=== PATIENT | male | born 1960 | race Caucasian/White ===

== ENCOUNTER 2018-02-13 16:35 | Inpatient (IN) | payer BC ==
[2018-02-13 17:13] LABS: #Basophils 0.1 thou/uL (0.0-0.2); #Eosinphils 0.4 thou/uL (0.0-0.7); #Lymphocytes 1.7 thou/uL (1.20-3.40); #Monocytes 0.7 thou/uL (0.11-0.59); #Neutrophils 5.4 thou/uL (1.40-6.50); %Basophils 1.1 % (0.0-1.0); %Lymphocytes 20.7 % (21.0-51.0); %Monocytes 8.1 % (0.0-10.0); %Neutrophils 65.2 % (42.0-75.0); Hemoglobin 14.8 g/dL (14.0-18.0); Mean Corpuscular HGB CONC 33.3 g/dL (32.0-36.0); Platelet Count 239 thou/uL (130-400); RBC Distribution Width 11.3 % (11.5-14.5); Red Blood Cell (RBC) Count 5.11 mill/uL (4.70-6.10); White Blood Cell (WBC) Count 8.3 thou/uL (4.8-10.8)
[2018-02-13 17:22] LABS: PTT 35.2 SEC (22.9-36.1); Prothrombin Time 13.3 SEC (12.0-14.7)
[2018-02-13 17:31] LABS: ALT (SGPT) 31 U/L (8-55); AST (SGOT) 25 U/L (5-34); Albumin 4.4 g/dL (3.5-5.0); Alkaline Phosphatase 52 U/L (40-150); Anion Gap 14 mmol/L (10-20); BUN (Urea Nitrogen) 16 mg/dL (8.4-25.7); Bilirubin, Total 0.5 mg/dL (0.2-1.2); Calc. Creatinine Clearance 0 mL/min (70-130); Calcium 9.9 mg/dL (7.8-10.44); Carbon Dioxide 26 mmol/L (22-29); Chloride 104 mmol/L (98-107); Estimated GFR-MDRD Greater than 90; Globulin 3.6 g/dL (2.4-3.5); Glucose 92 mg/dL (70-105); Potassium 3.9 mmol/L (3.5-5.1); Sodium 140 mmol/L (136-145)
[2018-02-13 17:32] LABS: CKMB 1.1 ng/mL (0-6.6); Troponin I 0.019 ng/mL (< 0.028)
--- NOTE | 2018-02-13 17:49 | RAD ---
SINGLE VIEW OF THE CHEST: 02/13/18 COMPARISON: None. HISTORY: Chest pain and abnormal EKG. FINDINGS: Single view of the chest shows an enlarged cardiomediastinal silhouette. There is no evidence of cons olidation, mass or pleural effusion. IMPRESSION: No evidence of acute cardiopulmonary disease. POS: [facility]
[2018-02-13] MEDS ORDERED: Enoxaparin Sodium 30 MG/0.3 ML SYRINGE ONE (17:53)
[2018-02-13] MEDS ORDERED: Enoxaparin Sodium 100 MG/ML SYRINGE ONE (17:53)
[2018-02-13 19:00] VITALS: BMI 39.4
[2018-02-13] MEDS ORDERED: Calcium Carbonate 500 MG ChewTAB PO PRN (19:10)
[2018-02-13] MEDS ORDERED: Acetaminophen 325 MG TAB PO PRN (19:10)
[2018-02-13] MEDS ORDERED: Ondansetron ODT 4 MG TAB PO PRN (19:10)
[2018-02-13] MEDS ORDERED: Nitroglycerin 0.4 MG TAB (25 Tab Bottle) PO PRN (19:10)
[2018-02-13] MEDS ORDERED: Senokot 8.6 MG TAB PO PRN (19:10)
[2018-02-13] MEDS ORDERED: Ondansetron HCl/PF 4 MG/2 ML Vial IVP PRN (19:10)
[2018-02-13 20:59] LABS: Troponin I 0.029 ng/mL (< 0.028)
[2018-02-13] MEDS ORDERED: Carvedilol 6.25 MG TAB PO SCH (21:00)
[2018-02-13] MEDS ORDERED: Lisinopril 20 MG TAB PO SCH (21:30)
[2018-02-13] MEDS ORDERED: hydrALAZINE 20 MG/ML VIAL SLOW IVP PRN (21:30)
[2018-02-13] MEDS: Docusate 100 MG CAP PO SCH (21:41)
[2018-02-13] MEDS: Famotidine 20 MG TAB PO SCH (21:41)
--- NOTE | 2018-02-13 22:12 | HP ---
DATE OF ADMISSION: 02/13/2018 PRIMARY CARE PHYSICIAN: Dr. Newell. CHIEF COMPLAINT: Abnormal EKG/new-onset atrial fibrillation. HISTORY OF PRESENT ILLNESS: Patient is a 58-year-old male with hypertension, hyperlipidemia, obstruc tive sleep apnea on CPAP, and obesity presented to the emergency room with above complaints. Patient was seen by his primary care physician for a routine visit and was found to have irregular he artbeat. His EKG was consistent with atrial fibrillation. For this reason, he was sent to the [facility] ency room for evaluation. At this time, patient denies any chest pain, shortness of breath, palpitat ions, lightheadedness, dizziness, or syncope. He denies any exertional shortness of breath. He cons umes up to 25-30 ounces of caffeine on a daily basis. He denies recent immobilization or travel. PAST MEDICAL HISTORY: 1. Hypertension. 2. Obesity with a BMI 39.5. 3. Obstructive sleep apnea on CPAP. 4. Degenerative joint disease. 5. Hyperlipidemia. PAST SURGICAL HISTORY: 1. Left eye surgery. 2. Orchiopexy. ALLERGIES: No known drug allergies. CURRENT HOME MEDICATIONS: 1. Lisinopril 20/25 daily. 2. Lisinopril 20 mg at bedtime (new medication per PCP to be started tonight). 3. Carvedilol 12.5 mg daily. 4. Aspirin 81 mg daily. 5. Amlodipine 10 mg daily. SOCIAL HISTORY: Patient currently lives at home. Denies any smoking, alcohol, or drug use. 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 He is . He drinks alcohol socially, no drug use. FAMILY HISTORY: Father with heart disease. Mother with uterine cancer and hypertension. One brothe r with cirrhosis of the liver. One sister with cirrhosis of the liver. REVIEW OF SYSTEMS: The following complete review of systems was negative, unless otherwise mentioned in the HPI or below: Constitutional: Weight loss or gain, ability to conduct usual activities. Sk in: Rash, itching. Eyes: Double vision, pain. ENT/Mouth: Nose bleeding, neck stiffness, pain, te nderness. Cardiovascular: Palpitations, dyspnea on exertion, orthopnea. Respiratory: Shortness of breath, wheezing, cough, hemoptysis, fever, or night sweats. Gastrointestinal: Poor appetite, abdo merrill pain, heartburn, nausea, vomiting, constipation, or diarrhea. Genitourinary: Urgency, frequen cy, dysuria, nocturia. Musculoskeletal: Pain, swelling. Neurologic/Psychiatric: Anxiety, depressi on. Allergy/Immunologic: Skin rash, bleeding tendency. PHYSICAL EXAMINATION: VITAL SIGNS: In the emergency room showed temperature 98.3, respiration 18, pulse rate of 60, blood pressure 154/81 with O2 saturation 98% on room air. GENERAL: A 58-year-old male in no apparent distress. Denies any complaints. HEENT: Head atraumatic, normocephalic. Sclerae anicteric. Moist mucous membrane. No oral lesion. NECK: Supple, no JVD appreciated. No carotid bruit. LUNGS: Clear to auscultation bilaterally. No wheezing, rales, or rhonchi. HEART: S1, S2 present. Irregularly irregular. No murmur, rubs, or gallops appreciated. Bradycardi c. ABDOMEN: Soft, nontender, bowel sounds present. No rebound or guarding. EXTREMITIES: Trace edema in bilateral lower extremities. SKIN: Warm and dry. LYMPH NODES: No palpable lymph nodes in the neck. PERIPHERAL VASCULAR: Radial pulses palpable bilaterally. MUSCULOSKELETAL: No joint swelling or tenderness. SKIN: Warm and dry. LABORATORY FINDINGS: Initial troponin 0.019, repeat troponin 0.029. BUN 16, creatinine 0.76. CBC s howed WBC 8.3 with hemoglobin 14.8. Recent hemoglobin A1c was 5.4. Recent fasting lipid profile deion sun LDL 112, HDL 35 with cholesterol 164, triglyceride 87. EKG by my review showed atrial fibrillation with slow ventricular response. Chest x-ray by my review was negative for infiltrate or edema. IMPRESSION: 1. Abnormal EKG/new-onset atrial fibrillation with slow ventricular response. 2. Elevated troponins, probably secondary to demand ischemia, rule out acute coronary syndrome. 3. Obesity with a BMI 39.5. 4. Obstructive sleep apnea on CPAP at home. Patient cannot recall his settings. PLAN: Patient will be monitored on the telemetry unit as observation. Cardiology will be consulted. One dose of Lovenox 1 mg/kg was given in the emergency room. We will continue his home medication except for carvedilol. We will reduce the dose of carvedilol due to bradycardia. Echocardiogram maria e l be obtained. We will recheck troponin and electrolytes in a.m. We will keep him n.p.o. past [facility]. We will arrange for AutoPap if possible. Plan of care was discussed with patient in detail, he stated understanding. DISPOSITION: Probably in 24 hours.
[2018-02-14 06:27] LABS: #Basophils 0.1 thou/uL (0.0-0.2); #Eosinphils 0.4 thou/uL (0.0-0.7); #Lymphocytes 1.7 thou/uL (1.20-3.40); #Monocytes 0.8 thou/uL (0.11-0.59); #Neutrophils 4.7 thou/uL (1.40-6.50); %Basophils 0.9 % (0.0-1.0); %Lymphocytes 22.4 % (21.0-51.0); %Monocytes 10.1 % (0.0-10.0); %Neutrophils 61.6 % (42.0-75.0); Hemoglobin 14.2 g/dL (14.0-18.0); Mean Corpuscular HGB CONC 34.1 g/dL (32.0-36.0); Mean Corpuscular Hemoglobin 30.7 pg (27.0-31.0); Mean Platelet Volume 6.8 fL (7.4-10.4); Platelet Count 235 thou/uL (130-400); RBC Distribution Width 11.6 % (11.5-14.5); Red Blood Cell (RBC) Count 4.62 mill/uL (4.70-6.10); White Blood Cell (WBC) Count 7.7 thou/uL (4.8-10.8)
[2018-02-14 06:54] LABS: Albumin 4.2 g/dL (3.5-5.0); Anion Gap 12 mmol/L (10-20); BUN (Urea Nitrogen) 16 mg/dL (8.4-25.7); BUN/Creatinine Ratio 21.05; Calc. Creatinine Clearance 193 mL/min (70-130); Calcium 9.7 mg/dL (7.8-10.44); Carbon Dioxide 26 mmol/L (22-29); Chloride 106 mmol/L (98-107); Estimated GFR-MDRD Greater than 90; Glucose 89 mg/dL (70-105); Magnesium 2.2 mg/dL (1.6-2.6); Phosphorus 4.1 mg/dL (2.3-4.7); Potassium 3.7 mmol/L (3.5-5.1); Sodium 140 mmol/L (136-145)
[2018-02-14 07:00] LABS: Troponin I 0.026 ng/mL (< 0.028)
[2018-02-14] MEDS ORDERED: Aspirin 325 MG TAB PO SCH (09:00)
[2018-02-14] MEDS: Multivit, Therapeutic 1 TAB PO SCH (09:40)
[2018-02-14] MEDS: Aspirin 81 mg Enteric Coated Tablet PO SCH (09:42)
[2018-02-14] MEDS: Famotidine 20 MG TAB PO SCH ×2 (09:43→20:39)
[2018-02-14] MEDS: Docusate 100 MG CAP PO SCH ×2 (09:44→20:38)
[2018-02-14] MEDS: Amlodipine 10 MG TAB PO SCH (09:53)
[2018-02-14] MEDS: Carvedilol 3.125 MG TAB PO SCH ×2 (09:54→22:07)
[2018-02-14] MEDS: Lisinopril/Hydrochlorothiazide 20/25 mg Tablet PO SCH (09:54)
[2018-02-14] MEDS ORDERED: Atropine Sulfate 1 mg/1 ml Vial IVP PRN (17:47)
--- NOTE | 2018-02-14 17:54 | PDOC.PN ---
- Subjective Encounter Start Date: 02/14/18 Encounter Start Time: 18:00 Patient seen and examined. No new complaints. No overnight events. HR in 20s this morning. - Objective Resuscitation Status: Resuscitation Status FULL:Full Resuscitation MAR Reviewed: Yes Vital Signs & Weight: Vital Signs (12 hours) Temp Pulse Resp BP BP Pulse Ox 02/14/18 15:31 97.8 F 61 16 139/88 96 02/14/18 11:58 97.4 F L 51 L 16 136/80 97 02/14/18 09:54 37 L 140/90 02/14/18 09:53 37 L 140/90 02/14/18 07:45 97.4 F L 38 L 18 02/14/18 07:39 97.4 F L 38 L 18 137/62 97 Weight Weight 291 lb 4.8 oz I&O: 02/13/18 02/14/18 02/15/18 06:59 06:59 06:59 Intake Total 750 Output Total 950 Balance -200 Result Diagrams: 02/18/18 04:57 02/18/18 04:57 EKG Reviewed by me: Yes (Afib with Slow Vent rate) Phys Exam - Physical Examination Constitutional: NAD Respiratory: no wheezing, no rales, no rhonchi, clear to auscultation bilateral Cardiovascular: no rub, irregular bradycardia Gastrointestinal: soft, non-tender, no distention, positive bowel sounds Musculoskeletal: no edema Neurological: non-focal, normal sensation, moves all 4 limbs Psychiatric: normal affect, A&O x 3 Dx/Plan - Plan DVT proph w/SCDs IMPRESSION: 1. Abnormal EKG/new-onset atrial fibrillation with slow ventricular response. HR 27 this morning. 2. Elevated troponins, probably secondary to demand ischemia, rule out acute coronary syndrome. 3. Obesity with a BMI 39.5. 4. Obstructive sleep apnea on CPAP at home. PLAN: * Cardio input appreciated * Await Echo * Patient unsafe for discharge due to severe bradycardia * [facility] on hold * Cont Lisinopril/HCTZ/Amlodipine * Cont CPAP Laboratory Tests 02/13/18 02/13/18 02/14/18 17:08 20:29 05:53 Magnesium 2.2 Troponin I 0.019 0.029 H TSH 3rd Generation 02/14/18 02/14/18 05:53 05:53 Magnesium Troponin I 0.026 TSH 3rd Generation 1.8838 Review of Systems - Review of Systems Respiratory: negative: Cough, Dry, Shortness of Breath, Hemoptysis, SOB with Excertion, Pleuritic Pain, Sputum, Wheezing Cardiovascular: negative: chest pain, palpitations, orthopnea, paroxysmal nocturnal dyspnea, edema, light headedness, other - Medications/Allergies Allergies/Adverse Reactions: Allergies Allergy/AdvReac Type Severity Reaction Status Date / Time No Known Allergies Allergy Verified 02/13/18 19:51 Medications: Current Medications Acetaminophen (Tylenol) 650 mg PO Q4H PRN PRN Reason: Headache/Fever or Pain Amlodipine Besylate (Norvasc) 10 mg PO DAILY [facility] Last Admin: 02/14/18 09:53 Dose: 10 mg Aspirin (Ecotrin) 81 mg PO DAILY [facility] Last Admin: 02/14/18 09:42 Dose: 81 mg Atropine Sulfate (Atropine) 0.5 mg IVP ASDIR PRN PRN Reason: Sustained Bradycardia HR < 30 Calcium Carbonate (Tums) 1,000 mg PO Q4H PRN PRN Reason: Heartburn or Indigestion Docusate Sodium (Colace) 100 mg PO BID [facility] Last Admin: 02/14/18 09:44 Dose: Not Given Famotidine (Pepcid) 20 mg PO BID [facility] Last Admin: 02/14/18 09:43 Dose: 20 mg Lisinopril/HCTZ (Prinizide 20-25) 1 tab PO DAILY [facility] Last Admin: 02/14/18 09:54 Dose: 1 tab Hydralazine HCl (Apresoline) 10 mg SLOW IVP Q4H PRN PRN Reason: SBP Greater Than 180 Lisinopril (Zestril) 20 mg PO [facility] Multivitamins (Theragran) 1 tab PO DAILY [facility] Last Admin: 02/14/18 09:40 Dose: 1 tab Nitroglycerin (Nitrostat) 0.4 mg PO Q5MIN PRN PRN Reason: Chest Pain Ondansetron HCl (Zofran Odt) 4 mg PO Q6H PRN PRN Reason: Nausea/Vomiting Ondansetron HCl (Zofran) 4 mg IVP Q6H PRN PRN Reason: Nausea/Vomiting Senna (Senokot) 2 tab PO HSPRN PRN PRN Reason: Constipation Sodium Chloride (Flush - Normal Saline) 10 ml IVF PRN PRN PRN Reason: Saline Flush
--- NOTE | 2018-02-14 18:09 | CON ---
DATE OF ADMISSION: 02/13/2018 DATE OF CONSULTATION: 02/14/2018 INDICATION FOR CONSULTATION: A 58-year-old patient with atrial fibrillation and bradycardia. HISTORY OF PRESENT ILLNESS: This is a very pleasant 58-year-old gentleman, who works for [employer], who almanzar s had no previous cardiac history that he is aware of. He does have history of hypertension, sleep a pnea. He denies any history of hyperlipidemia. He has not been on cholesterol medicines that I can see, but he denies having hyperlipidemia, but does have sleep apnea, has been on the CPAP mask for ab out 3 years. He had no history of any arrhythmias in the past. He was seen by the primary care phys sotero and was noted to have an irregular rhythm. An EKG was obtained. The patient was sent to the [facility] for admission. He remains in atrial fibrillation since being here. He has had severe bradyc ardia with heart rates in the 30s, but he was actually taking also carvedilol 12.5 mg a day, which he has been doing so for the last 3 years and this is being held. His heart rate is actually increasin g some with bradycardia. He has been actually heart rates in the 30s with the atrial fibrillation, b ut also I believe he was sleeping at the time, bust he does wear a CPAP mask. He denied any chest pa in or shortness of breath or any other associated symptoms with the bradycardia. He does have obesit y, but denied any other associated symptoms. He has been trying to lose weight and has lost about 32 pounds over the last 6 months after changing his dietary habits. As far as his atrial fibrillation is concerned, he does drink about 4-5 cups of coffee a day. He also says he drinks 1-2 beers a day a nd on the weekends he drinks 6-8 beers a day from Sunday, Sunday or Sunday. He denied any chest pa in and he had no significant family history of arrhythmias or coronary artery disease. PAST MEDICAL HISTORY: Significant for hypertension, obesity, sleep apnea, degenerative joint disease . He has had left eye surgery after trauma. He continues to have blurred vision in the left eye. Santos freeman has had an orchiopexy. ALLERGIES: None. MEDICATIONS PRIOR TO ADMISSION: Included lisinopril 20/12.5 q. day and 20 mg q.p.m., carvedilol 12.5 mg q. day, aspirin 81 mg a day and amlodipine 10 mg a day. SOCIAL HISTORY: He is . He works for [employer] in maintenance. He denies any tobacco abuse, but d oes admit to alcohol use as noted above. He had no illicit drug use. FAMILY HISTORY: Father had some type of heart disease. One brother with cirrhosis. Mother had uter ine cancer and hypertension and the sister also had cirrhosis of the liver. ALLERGIES: None. REVIEW OF SYSTEMS: Twelve-point review of systems is unremarkable except what was noted in the histo ry of present illness. He does complain of foot pain; however, which appears to be somewhat sounds a s if he has some arthritis. In both feet, he has pain sometimes when he wakes, sometimes with walkin g. Otherwise, he denied any HEENT complaints, but blurred vision in the left eye. He had no pulmona ry complaints such as emphysema, bronchitis. No GI complaints such as nausea, vomiting or diarrhea. No complaints such as dysuria, polyuria, or hematuria. Musculoskeletal: As noted above. No sig nificant other problems. He does have occasional mild edema, he says, but this was usually goes away overnight and no neurological complaints such as seizures or syncope. PHYSICAL EXAMINATION: GENERAL: Reveals a well-developed, well-nourished, overweight gentleman. VITAL SIGNS: Blood pressure is 140/90, heart rate at this time is anywhere appears to be in the 50s to 60s with atrial fibrillation. He is afebrile, respiratory rate is 18. HEENT: Shows the head to be normocephalic, atraumatic. Carotid pulses are present. There are no br uits. There is no JVD. The thyroid is not enlarged. Oral mucosa was pink and moist. CHEST: Clear to auscultation. There were no rales, rhonchi or wheezing. CARDIOVASCULAR: Exam reveals a bradycardia with a regular rhythm. There were no significant murmurs , heaves, thrills, bruits or rubs. ABDOMEN: Shows obesity with positive bowel sounds. No organomegaly or masses are noted. No tendern ess is noted. EXTREMITIES: Show no clubbing, cyanosis or edema. Pedal pulses are present. NEUROLOGICAL: He appears to be fully intact. He has normal strength and tone. SKIN: Warm and dry. IMAGING: EKG shows an atrial fibrillation at times and severe bradycardia. Heart rates actually in the 20s, but the patient apparently was sleeping at the time. There are no ischemic changes on the E KG. LABORATORY DATA: Shows a hemoglobin of 14.2. Creatinine 0.76 with a BUN of 16, potassium is 3.7 and glucose is 89. His cardiac enzymes are negative for myocardial infarction. MB is 1.1 with a tropon in I peaked up to 0.029 and back down to 0.026, not indicative of MN. The patient denies any chest p ain. He has no EKG changes indicative of ischemia. His LDL level was 112. IMPRESSION AND PLAN: 1. A newly diagnosed atrial fibrillation with slow ventricular response. We will hold his beta bloc kers at this time. We will see whether or not he recovers with his heart rate. If not, he will need to undergo pacemaker insertion. He will need an echocardiogram for evaluation of left atrial size a nd also to evaluate the left ventricular systolic function. It may be possible that he can be conver sanna back to sinus rhythm, but will need to have anticoagulation for at least 4-6 weeks. We do not kn ow when the atrial fibrillation started. If necessary, we can always consult the compensation specialist and he can undergo perhaps a transesophageal echocardiogram and then may need to have an ablation of the atrial fibrillation in the future. If unable to do so, he could become a candidate for the [employer] hman device to decrease the risk of embolic phenomenon in this relatively young person, who would be on anticoagulation. If we are unable to convert him with somewhat agree with the present management, keeping him on the anticoagulation. 2. Hypertension, which is under good control at this time. 3. Sleep apnea. He will continue with the CPAP mask and this will be dealt with by the primary serv ice. 4. Obesity. He will continue to try to lose weight as he is doing. 5. Alcohol use. I have suggested that he try to cut back on the alcohol use, 1-2 beers a day and th en 6-8 beers a day on the weekend is too much alcohol for this gentleman with his atrial fibrillation may be some of the etiology of his atrial fibrillation. At some point in time, he will probably nee d to undergo stress testing to rule out evidence of ischemia as a possible etiology of the atrial fib rillation. We will need to have his thyroid function also evaluated. We will be more than happy to continue to follow the patient with you, but further recommendations wi ll depend on the evaluation after we have seen the echocardiogram.
[2018-02-14] MEDS: Lisinopril 20 MG TAB PO SCH (20:39)
[2018-02-15] MEDS ORDERED: Enoxaparin Sodium 120 MG/0.8 ML SYRINGE SC SCH ×2 (07:45→09:00)
[2018-02-15] MEDS: Lisinopril/Hydrochlorothiazide 20/25 mg Tablet PO SCH (09:46)
[2018-02-15] MEDS: Famotidine 20 MG TAB PO SCH ×2 (09:47→20:56)
[2018-02-15] MEDS: Amlodipine 10 MG TAB PO SCH (09:47)
[2018-02-15] MEDS: Aspirin 81 mg Enteric Coated Tablet PO SCH (09:47)
[2018-02-15] MEDS: Multivit, Therapeutic 1 TAB PO SCH (09:47)
[2018-02-15] MEDS: Docusate 100 MG CAP PO SCH ×2 (09:47→20:57)
[2018-02-15 10:12] LABS: Hemoglobin 15.1 g/dL (14.0-18.0); Platelet Count 222 thou/uL (130-400)
[2018-02-15 10:24] LABS: Calc. Creatinine Clearance 190 mL/min (70-130); Estimated GFR-MDRD Greater than 90
[2018-02-15] MEDS ORDERED: Communication Order-Pharmacy FS SCH (16:45)
[2018-02-15] MEDS: Lisinopril 20 MG TAB PO SCH (20:56)
[2018-02-15] MEDS: Enoxaparin Sodium 120 MG/0.8 ML SYRINGE SC SCH (20:57)
--- NOTE | 2018-02-15 23:16 | PDOC.PN ---
- Subjective Encounter Start Date: 02/15/18 Encounter Start Time: 17:00 Patient seen and examined. No new complaints. No overnight events - Objective MAR Reviewed: Yes Vital Signs & Weight: Vital Signs (12 hours) Temp Pulse Resp BP BP Pulse Ox 02/15/18 20:56 132/77 02/15/18 15:45 97.7 F 64 20 170/87 H 97 02/15/18 11:52 49 L 20 158/81 H 98 Weight Weight 283 lb 4.8 oz I&O: 02/14/18 02/15/18 02/16/18 06:59 06:59 06:59 Intake Total 560 1056 Output Total 1250 2024 Balance -041 -184 Result Diagrams: 02/15/18 10:00 02/15/18 10:00 EKG Reviewed by me: Yes (Tele Afib) Phys Exam - Physical Examination Constitutional: NAD Respiratory: no wheezing, no rhonchi Cardiovascular: RRR, no rub Gastrointestinal: soft, non-tender, positive bowel sounds Neurological: non-focal, moves all 4 limbs Psychiatric: A&O x 3 Dx/Plan - Plan DVT proph w/lovenox IMPRESSION: 1. Abnormal EKG/new-onset atrial fibrillation with slow ventricular response. 2. New onset systolic heart failure EF 30-35% 3. Elevated troponins, probably secondary to demand ischemia, rule out acute coronary syndrome. 4. Obesity with a BMI 39.5. 5. Obstructive sleep apnea on CPAP at home. PLAN: * Cardio following * [facility] on hold * Cont Lisinopril/HCTZ/Amlodipine * Cont CPAP HS * Cardiac Cath planned * [facility] [place] Review of Systems - Review of Systems Respiratory: SOB with Excertion. negative: Cough, Dry, Shortness of Breath, Hemoptysis, Pleuritic Pain, Sputum, Wheezing Cardiovascular: negative: chest pain, palpitations, orthopnea, paroxysmal nocturnal dyspnea, edema, light headedness Gastrointestinal: negative: Nausea, Vomiting, Abdominal Pain, Diarrhea, Constipation, Melena, Hematochezia - Medications/Allergies Allergies/Adverse Reactions: Allergies Allergy/AdvReac Type Severity Reaction Status Date / Time No Known Allergies Allergy Verified 02/13/18 19:51 Medications: Current Medications Acetaminophen (Tylenol) 650 mg PO Q4H PRN PRN Reason: Headache/Fever or Pain Amlodipine Besylate (Norvasc) 10 mg PO DAILY [facility] Last Admin: 02/15/18 09:47 Dose: Not Given Aspirin (Ecotrin) 81 mg PO DAILY [facility] Last Admin: 02/15/18 09:47 Dose: 81 mg Atropine Sulfate (Atropine) 0.5 mg IVP ASDIR PRN PRN Reason: Sustained Bradycardia HR < 30 Calcium Carbonate (Tums) 1,000 mg PO Q4H PRN PRN Reason: Heartburn or Indigestion Docusate Sodium (Colace) 100 mg PO BID [facility] Last Admin: 02/15/18 20:57 Dose: 100 mg Enoxaparin Sodium (Lovenox) 120 mg SC 0900,2100 [facility] Stop: 02/17/18 23:59 Last Admin: 02/15/18 20:57 Dose: 120 mg Famotidine (Pepcid) 20 mg PO BID [facility] Last Admin: 02/15/18 20:56 Dose: 20 mg Lisinopril/HCTZ (Prinizide 20-25) 1 tab PO DAILY [facility] Last Admin: 02/15/18 09:46 Dose: 1 tab Hydralazine HCl (Apresoline) 10 mg SLOW IVP Q4H PRN PRN Reason: SBP Greater Than 180 Lisinopril (Zestril) 20 mg PO HS [facility] Last Admin: 02/15/18 20:56 Dose: 20 mg Miscellaneous Information (Communication Order-Pharmacy) 0 each FS [facility] Stop: 02/17/18 23:59 Multivitamins (Theragran) 1 tab PO DAILY [facility] Last Admin: 02/15/18 09:47 Dose: 1 tab Nitroglycerin (Nitrostat) 0.4 mg PO Q5MIN PRN PRN Reason: Chest Pain Ondansetron HCl (Zofran Odt) 4 mg PO Q6H PRN PRN Reason: Nausea/Vomiting Ondansetron HCl (Zofran) 4 mg IVP Q6H PRN PRN Reason: Nausea/Vomiting Senna (Senokot) 2 tab PO HSPRN PRN PRN Reason: Constipation Sodium Chloride (Flush - Normal Saline) 10 ml IVF PRN PRN PRN Reason: Saline Flush Last Admin: 02/15/18 09:46 Dose: 10 ml
[2018-02-16] MEDS: Enoxaparin Sodium 120 MG/0.8 ML SYRINGE SC SCH ×2 (09:21→21:30)
[2018-02-16] MEDS: Aspirin 81 mg Enteric Coated Tablet PO SCH (09:22)
[2018-02-16] MEDS: Amlodipine 10 MG TAB PO SCH (09:22)
[2018-02-16] MEDS: Lisinopril/Hydrochlorothiazide 20/25 mg Tablet PO SCH (09:22)
[2018-02-16] MEDS: Docusate 100 MG CAP PO SCH ×2 (09:22→21:30)
[2018-02-16] MEDS: Multivit, Therapeutic 1 TAB PO SCH (09:22)
[2018-02-16] MEDS: Famotidine 20 MG TAB PO SCH ×2 (09:22→21:30)
--- NOTE | 2018-02-16 17:57 | PDOC.PN ---
- Subjective Encounter Start Date: 02/16/18 Encounter Start Time: 11:00 Patient seen and examined. No new complaints. No overnight events - Objective MAR Reviewed: Yes Vital Signs & Weight: Vital Signs (12 hours) Temp Pulse Resp BP BP BP Pulse Ox 02/16/18 16:50 97.8 F 73 20 155/65 H 98 02/16/18 11:45 98 02/16/18 11:42 63 20 113/64 98 02/16/18 09:22 40 L 147/70 H 02/16/18 07:22 96.8 F L 40 L 18 147/70 H 96 02/16/18 06:27 35 L Weight Weight 283 lb 4.8 oz I&O: 02/15/18 02/16/18 02/17/18 06:59 06:59 06:59 Intake Total 560 1416 Output Total 1250 2925 Balance -690 -2829 Result Diagrams: 02/15/18 10:00 02/15/18 10:00 EKG Reviewed by me: Yes (Tele Afib with SVR) Phys Exam - Physical Examination Constitutional: NAD Respiratory: no wheezing, no rhonchi Cardiovascular: RRR, no rub Gastrointestinal: soft, non-tender, positive bowel sounds Musculoskeletal: no edema Neurological: moves all 4 limbs Dx/Plan - Plan DVT proph w/SCDs IMPRESSION: 1. Abnormal EKG/new-onset atrial fibrillation with slow ventricular response. 2. New onset systolic heart failure EF 30-35% 3. Elevated troponins, probably secondary to demand ischemia 4. Obesity with a BMI 39.5. 5. Obstructive sleep apnea on CPAP at home. PLAN: * Cardiac Cath planned * Cardio following * [facility] on hold due to bradycardia * Cont Lisinopril/HCTZ/Amlodipine * Cont Auto CPAP HS * [facility] [place] * Counselled on HF Review of Systems - Review of Systems Respiratory: negative: Cough, Dry, Shortness of Breath, Hemoptysis, SOB with Excertion, Pleuritic Pain, Sputum, Wheezing Cardiovascular: negative: chest pain, palpitations, orthopnea, paroxysmal nocturnal dyspnea, edema, light headedness - Medications/Allergies Allergies/Adverse Reactions: Allergies Allergy/AdvReac Type Severity Reaction Status Date / Time No Known Allergies Allergy Verified 02/13/18 19:51 Medications: Current Medications Acetaminophen (Tylenol) 650 mg PO Q4H PRN PRN Reason: Headache/Fever or Pain Aspirin (Ecotrin) 81 mg PO DAILY [facility] Last Admin: 02/16/18 09:22 Dose: 81 mg Atropine Sulfate (Atropine) 0.5 mg IVP ASDIR PRN PRN Reason: Sustained Bradycardia HR < 30 Calcium Carbonate (Tums) 1,000 mg PO Q4H PRN PRN Reason: Heartburn or Indigestion Docusate Sodium (Colace) 100 mg PO BID [facility] Last Admin: 02/16/18 09:22 Dose: 100 mg Enoxaparin Sodium (Lovenox) 120 mg SC 0900,2100 [facility] Stop: 02/17/18 23:59 Last Admin: 02/16/18 09:21 Dose: 120 mg Famotidine (Pepcid) 20 mg PO BID [facility] Last Admin: 02/16/18 09:22 Dose: 20 mg Lisinopril/HCTZ (Prinizide 20-25) 1 tab PO DAILY [facility] Last Admin: 02/16/18 09:22 Dose: 1 tab Hydralazine HCl (Apresoline) 10 mg SLOW IVP Q4H PRN PRN Reason: SBP Greater Than 180 Lisinopril (Zestril) 20 mg PO HS [facility] Last Admin: 02/15/18 20:56 Dose: 20 mg Miscellaneous Information (Communication Order-Pharmacy) 0 each FS ONE [facility] Stop: 02/17/18 23:59 Multivitamins (Theragran) 1 tab PO DAILY [facility] Last Admin: 02/16/18 09:22 Dose: 1 tab Nitroglycerin (Nitrostat) 0.4 mg PO Q5MIN PRN PRN Reason: Chest Pain Ondansetron HCl (Zofran Odt) 4 mg PO Q6H PRN PRN Reason: Nausea/Vomiting Ondansetron HCl (Zofran) 4 mg IVP Q6H PRN PRN Reason: Nausea/Vomiting Senna (Senokot) 2 tab PO HSPRN PRN PRN Reason: Constipation Sodium Chloride (Flush - Normal Saline) 10 ml IVF PRN PRN PRN Reason: Saline Flush Last Admin: 02/16/18 09:21 Dose: 10 ml
[2018-02-16] MEDS: Lisinopril 20 MG TAB PO SCH (21:30)
[2018-02-17 05:55] LABS: #Basophils 0.1 thou/uL (0.0-0.2); #Eosinphils 0.4 thou/uL (0.0-0.7); #Lymphocytes 2.2 thou/uL (1.20-3.40); #Monocytes 0.9 thou/uL (0.11-0.59); #Neutrophils 5.3 thou/uL (1.40-6.50); %Basophils 0.8 % (0.0-1.0); %Eosinophils 4.3 % (0.0-10.0); %Lymphocytes 24.4 % (21.0-51.0); %Monocytes 10.5 % (0.0-10.0); Hemoglobin 15.3 g/dL (14.0-18.0); Mean Corpuscular HGB CONC 34.1 g/dL (32.0-36.0); Mean Corpuscular Hemoglobin 30.9 pg (27.0-31.0); Mean Corpuscular Volume 90.6 fl (80.0-94.0); Platelet Count 208 thou/uL (130-400); RBC Distribution Width 11.9 % (11.5-14.5); Red Blood Cell (RBC) Count 4.95 mill/uL (4.70-6.10); White Blood Cell (WBC) Count 8.8 thou/uL (4.8-10.8)
[2018-02-17 06:20] LABS: Albumin 4.1 g/dL (3.5-5.0); Anion Gap 12 mmol/L (10-20); BUN (Urea Nitrogen) 16 mg/dL (8.4-25.7); BUN/Creatinine Ratio 20.51; Calc. Creatinine Clearance 183 mL/min (70-130); Calcium 9.5 mg/dL (7.8-10.44); Carbon Dioxide 27 mmol/L (22-29); Chloride 102 mmol/L (98-107); Estimated GFR-MDRD Greater than 90; Glucose 105 mg/dL (70-105); Magnesium 2.1 mg/dL (1.6-2.6); Phosphorus 3.9 mg/dL (2.3-4.7); Potassium 4.1 mmol/L (3.5-5.1); Sodium 137 mmol/L (136-145)
[2018-02-17] MEDS: Lisinopril/Hydrochlorothiazide 20/25 mg Tablet PO SCH (09:47)
[2018-02-17] MEDS: Famotidine 20 MG TAB PO SCH ×2 (09:48→21:14)
[2018-02-17] MEDS: Multivit, Therapeutic 1 TAB PO SCH (09:48)
[2018-02-17] MEDS: Enoxaparin Sodium 120 MG/0.8 ML SYRINGE SC SCH ×2 (09:48→21:15)
[2018-02-17] MEDS: Aspirin 81 mg Enteric Coated Tablet PO SCH (09:48)
[2018-02-17] MEDS: Docusate 100 MG CAP PO SCH ×2 (09:48→21:14)
--- NOTE | 2018-02-17 20:40 | PDOC.PN ---
- Subjective Encounter Start Date: 02/17/18 Encounter Start Time: 16:00 Patient seen and examined. No new complaints. No overnight events - Objective MAR Reviewed: Yes Vital Signs & Weight: Vital Signs (12 hours) Temp Pulse Resp BP BP Pulse Ox 02/17/18 20:00 97.6 F 58 L 19 125/65 98 02/17/18 15:55 97.8 F 65 16 117/64 95 02/17/18 12:10 97.4 F L 56 L 16 136/76 97 02/17/18 09:45 97.7 F 64 16 134/91 H 96 Weight Weight 283 lb 4.8 oz I&O: 02/16/18 02/17/18 02/18/18 06:59 06:59 06:59 Intake Total 1416 1820 720 Output Total 2925 2100 550 Balance -1509 -280 170 Result Diagrams: 02/18/18 04:57 02/18/18 04:57 EKG Reviewed by me: Yes (Tele SR/SB) Phys Exam - Physical Examination Constitutional: NAD Respiratory: no wheezing, no rhonchi Cardiovascular: RRR, no rub Gastrointestinal: soft, non-tender, no distention, positive bowel sounds Musculoskeletal: no edema Dx/Plan - Plan DVT proph w/SCDs IMPRESSION: 1. Abnormal EKG/new-onset atrial fibrillation with slow ventricular response. 2. New onset systolic heart failure EF 30-35% 3. Elevated troponins, probably secondary to demand ischemia 4. Obesity with a BMI 39.5. 5. Obstructive sleep apnea on CPAP at home. PLAN: * Betablockers on hold due to bradycardia * Cardiac Cath prob in AM * Cardio following * Cont current meds as below including Lisinopril/HCTZ/Amlodipine * Cont Auto CPAP HS * Lifevest at [place] * Counselled on HF Review of Systems - Review of Systems Respiratory: negative: Cough, Dry, Shortness of Breath, Hemoptysis, SOB with Excertion, Pleuritic Pain, Sputum, Wheezing Cardiovascular: negative: chest pain, palpitations, orthopnea, paroxysmal nocturnal dyspnea, edema, light headedness - Medications/Allergies Allergies/Adverse Reactions: Allergies Allergy/AdvReac Type Severity Reaction Status Date / Time No Known Allergies Allergy Verified 02/13/18 19:51 Medications: Current Medications Acetaminophen (Tylenol) 650 mg PO Q4H PRN PRN Reason: Headache/Fever or Pain Aspirin (Ecotrin) 81 mg PO DAILY [facility] Last Admin: 02/17/18 09:48 Dose: 81 mg Atropine Sulfate (Atropine) 0.5 mg IVP ASDIR PRN PRN Reason: Sustained Bradycardia HR < 30 Calcium Carbonate (Tums) 1,000 mg PO Q4H PRN PRN Reason: Heartburn or Indigestion Docusate Sodium (Colace) 100 mg PO BID [facility] Last Admin: 02/17/18 09:48 Dose: Not Given Enoxaparin Sodium (Lovenox) 120 mg SC 0900,2100 [facility] Stop: 02/17/18 23:59 Last Admin: 02/17/18 09:48 Dose: 120 mg Famotidine (Pepcid) 20 mg PO BID [facility] Last Admin: 02/17/18 09:48 Dose: 20 mg Lisinopril/HCTZ (Prinizide 20-25) 1 tab PO DAILY [facility] Last Admin: 02/17/18 09:47 Dose: 1 tab Hydralazine HCl (Apresoline) 10 mg SLOW IVP Q4H PRN PRN Reason: SBP Greater Than 180 Lisinopril (Zestril) 20 mg PO HS [facility] Last Admin: 02/16/18 21:30 Dose: 20 mg Miscellaneous Information (Communication Order-Pharmacy) 0 each FS ONE [facility] Stop: 02/17/18 23:59 Multivitamins (Theragran) 1 tab PO DAILY [facility] Last Admin: 02/17/18 09:48 Dose: 1 tab Nitroglycerin (Nitrostat) 0.4 mg PO Q5MIN PRN PRN Reason: Chest Pain Ondansetron HCl (Zofran Odt) 4 mg PO Q6H PRN PRN Reason: Nausea/Vomiting Ondansetron HCl (Zofran) 4 mg IVP Q6H PRN PRN Reason: Nausea/Vomiting Senna (Senokot) 2 tab PO HSPRN PRN PRN Reason: Constipation Sodium Chloride (Flush - Normal Saline) 10 ml IVF PRN PRN PRN Reason: Saline Flush Last Admin: 02/16/18 09:21 Dose: 10 ml
[2018-02-17] MEDS: Lisinopril 20 MG TAB PO SCH (21:14)
[2018-02-18 05:53] LABS: #Eosinphils 0.2 thou/uL (0.0-0.7); #Lymphocytes 1.7 thou/uL (1.20-3.40); #Monocytes 0.9 thou/uL (0.11-0.59); #Neutrophils 6.9 thou/uL (1.40-6.50); %Basophils 0.2 % (0.0-1.0); %Eosinophils 2.2 % (0.0-10.0); %Lymphocytes 17.2 % (21.0-51.0); %Monocytes 8.9 % (0.0-10.0); %Neutrophils 71.6 % (42.0-75.0); Hemoglobin 15.1 g/dL (14.0-18.0); Mean Corpuscular HGB CONC 33.7 g/dL (32.0-36.0); Mean Corpuscular Hemoglobin 30.4 pg (27.0-31.0); Mean Corpuscular Volume 90.3 fl (80.0-94.0); Mean Platelet Volume 6.8 fL (7.4-10.4); Platelet Count 214 thou/uL (130-400); RBC Distribution Width 11.6 % (11.5-14.5); Red Blood Cell (RBC) Count 4.95 mill/uL (4.70-6.10); White Blood Cell (WBC) Count 9.7 thou/uL (4.8-10.8)
[2018-02-18 06:16] LABS: Albumin 4.1 g/dL (3.5-5.0); Anion Gap 12 mmol/L (10-20); BUN (Urea Nitrogen) 16 mg/dL (8.4-25.7); BUN/Creatinine Ratio 19.75; Calc. Creatinine Clearance 175 mL/min (70-130); Calcium 9.5 mg/dL (7.8-10.44); Carbon Dioxide 29 mmol/L (22-29); Chloride 102 mmol/L (98-107); Estimated GFR-MDRD Greater than 90; Glucose 109 mg/dL (70-105); Magnesium 2.2 mg/dL (1.6-2.6); Phosphorus 3.5 mg/dL (2.3-4.7); Potassium 3.9 mmol/L (3.5-5.1); Sodium 139 mmol/L (136-145)
[2018-02-18] MEDS: Lisinopril/Hydrochlorothiazide 20/25 mg Tablet PO SCH (08:23)
[2018-02-18] MEDS: Multivit, Therapeutic 1 TAB PO SCH (08:23)
[2018-02-18] MEDS: Famotidine 20 MG TAB PO SCH ×2 (08:23→20:35)
[2018-02-18] MEDS: Aspirin 81 mg Enteric Coated Tablet PO SCH (08:23)
[2018-02-18] MEDS: Docusate 100 MG CAP PO SCH ×2 (08:23→20:35)
[2018-02-18] MEDS ORDERED: Lidocaine 1% (PF) 30 ML VIAL ONE (09:29)
[2018-02-18] MEDS ORDERED: Communication Order-Pharmacy FS SCH (09:30)
[2018-02-18] MEDS ORDERED: Iopamidol 370 76% 100 ML VIAL ONE (09:33)
[2018-02-18] MEDS ORDERED: Verapamil 5 MG/2 ML VIAL ONE (10:04)
[2018-02-18] MEDS ORDERED: Heparin 10,000 UNITS/1 ML VIAL ONE (10:04)
[2018-02-18] MEDS ORDERED: Nitroglycerin 100MG/250ML BOT 250 ML ONE (10:04)
[2018-02-18] MEDS ORDERED: Nitroglycerin 0.4 MG TAB (25 Tab Bottle) SL PRN (10:38)
[2018-02-18] MEDS ORDERED: traMADol HCl 50 MG TAB PO PRN (10:38)
[2018-02-18] MEDS ORDERED: Sodium Chloride 0.9% 200 ML IV SCH (10:45)
[2018-02-18] MEDS: Acetaminophen/Codeine 30-300mg Tablet PO PRN ×2 (13:08→20:35)
[2018-02-18] MEDS: Lisinopril 20 MG TAB PO SCH (20:34)
--- NOTE | 2018-02-18 22:30 | PDOC.PN ---
- Subjective Encounter Start Date: 02/18/18 Encounter Start Time: 17:30 Patient seen and examined. No new complaints. No overnight events - Objective MAR Reviewed: Yes Vital Signs & Weight: Vital Signs (12 hours) Temp Pulse Resp BP BP Pulse Ox 02/18/18 20:34 127/74 02/18/18 15:00 97.8 F 83 20 107/66 97 02/18/18 13:32 96 02/18/18 12:00 98.6 F 60 20 133/71 96 02/18/18 10:40 97.8 F 64 16 152/89 H 100 Weight Weight 281 lb 12.8 oz I&O: 02/17/18 02/18/18 02/19/18 06:59 06:59 06:59 Intake Total 1820 720 410 Output Total 2100 550 850 Balance -280 170 -440 Result Diagrams: 02/18/18 04:57 02/18/18 04:57 EKG Reviewed by me: Yes (Tele SR) Phys Exam - Physical Examination Constitutional: NAD Respiratory: no wheezing, no rhonchi Cardiovascular: RRR, no rub Gastrointestinal: soft, non-tender, positive bowel sounds Musculoskeletal: no edema Neurological: moves all 4 limbs Dx/Plan - Plan DVT proph w/SCDs IMPRESSION: 1. Abnormal EKG/new-onset atrial fibrillation with slow ventricular response. Betablockers dced 2. New onset systolic heart failure EF 30-35% - Nonischemic CM, s/p Cath 3. Elevated troponins, probably secondary to demand ischemia 4. Obesity with a BMI 39.5. 5. Obstructive sleep apnea on CPAP at home. PLAN: * Betablockers on hold due to bradycardia * Cont ACEI with HCTZ * Cardio following * Cont Auto CPAP HS * Lifevest at [place] * Counselled extensively on HF * Await EP input Review of Systems - Medications/Allergies Allergies/Adverse Reactions: Allergies Allergy/AdvReac Type Severity Reaction Status Date / Time No Known Allergies Allergy Verified 02/13/18 19:51 Medications: Current Medications Acetaminophen (Tylenol) 650 mg PO Q4H PRN PRN Reason: Headache/Fever or Pain Acetaminophen/Codeine Phosphate (Tylenol #3) 1 tab PO Q4H PRN PRN Reason: Mild Pain (1-3) Last Admin: 02/18/18 20:35 Dose: 1 tab Acetaminophen/Codeine Phosphate (Tylenol #3) 2 tab PO Q4H PRN PRN Reason: Moderate Pain (4-6) Last Admin: 02/18/18 13:08 Dose: 2 tab Aspirin (Ecotrin) 81 mg PO DAILY [facility] Last Admin: 02/18/18 08:23 Dose: Not Given Atropine Sulfate (Atropine) 0.5 mg IVP ASDIR PRN PRN Reason: Sustained Bradycardia HR < 30 Calcium Carbonate (Tums) 1,000 mg PO Q4H PRN PRN Reason: Heartburn or Indigestion Docusate Sodium (Colace) 100 mg PO BID [facility] Last Admin: 02/18/18 20:35 Dose: 100 mg Famotidine (Pepcid) 20 mg PO BID [facility] Last Admin: 02/18/18 20:35 Dose: 20 mg Lisinopril/HCTZ (Prinizide 20-25) 1 tab PO DAILY [facility] Last Admin: 02/18/18 08:23 Dose: 1 tab Hydralazine HCl (Apresoline) 10 mg SLOW IVP Q4H PRN PRN Reason: SBP Greater Than 180 Lisinopril (Zestril) 20 mg PO HS [facility] Last Admin: 02/18/18 20:34 Dose: 20 mg Multivitamins (Theragran) 1 tab PO DAILY [facility] Last Admin: 02/18/18 08:23 Dose: 1 tab Nitroglycerin (Nitrostat) 0.4 mg PO Q5MIN PRN PRN Reason: Chest Pain Nitroglycerin (Nitrostat) 0.4 mg SL Q5MIN PRN PRN Reason: Chest Pain Ondansetron HCl (Zofran Odt) 4 mg PO Q6H PRN PRN Reason: Nausea/Vomiting Ondansetron HCl (Zofran) 4 mg IVP Q6H PRN PRN Reason: Nausea/Vomiting Senna (Senokot) 2 tab PO HSPRN PRN PRN Reason: Constipation Sodium Chloride (Flush - Normal Saline) 10 ml IVF PRN PRN PRN Reason: Saline Flush Last Admin: 02/16/18 09:21 Dose: 10 ml Tramadol HCl (Ultram) 50 mg PO Q6H PRN PRN Reason: Moderate Pain (4-6)
[2018-02-19] MEDS: Acetaminophen/Codeine 30-300mg Tablet PO PRN ×3 (04:13→15:30)
[2018-02-19] MEDS: Lisinopril/Hydrochlorothiazide 20/25 mg Tablet PO SCH (09:40)
[2018-02-19] MEDS: Aspirin 81 mg Enteric Coated Tablet PO SCH (09:40)
[2018-02-19] MEDS: Docusate 100 MG CAP PO SCH (09:40)
[2018-02-19] MEDS: Multivit, Therapeutic 1 TAB PO SCH (09:40)
[2018-02-19] MEDS: Famotidine 20 MG TAB PO SCH (09:40)
--- NOTE | 2018-02-19 09:42 | CON ---
DATE OF CONSULTATION: 02/18/2018 ELECTROPHYSIOLOGY CONSULTATION I scribe for Dr. Jose Ahuja. REFERRING PHYSICIAN: Larissa Hastings M.D. REASON FOR CONSULTATION: Atrial fibrillation and cardiomyopathy. HISTORY OF PRESENT ILLNESS: Mr. 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 On 02/13/2018, he had gone to see his primary care provider for refill on high blood pressure medication, who felt his heart rate was irregular and sent him for further evaluation at one of the [facility] ERs. They did an EKG and he was sent to the hospital for admission. He was found to be in atrial fibrillation with controlled ventricular response. Since being admitted to the hospital, he has undergone left heart catheterization this morning with Dr. Hastings and reports disclosing the findings are pending. He has had an echocardiogram done revealing an ejection fraction severely reduced at 30%-35%. He has also been found to have severe bradycardia with ventricular skipped beats with rates in the 30 beats per minute range. He is taking carvedilol 12.5 mg daily (not b.i.d. by chart review), which is being held. His bradycardia did occur mostly during the night time. The patient has sleep apnea and wears a CPAP at night, which has been continued while hospitalized. Mr. Aguirre has never been told before that he is in atrial fibrillation. He denies any heart racing, palpitations, shortness of breath, dyspnea on exertion, swelling of the extremities, stroke or stroke-like symptoms. He is overweight, reports that he drinks 4-5 cups of coffee a day in addition to binge drinking beer on the weekends. He has not had any chest pain. Overall, he reports today that he is feeling well and does not have any current cardiac concerns. REVIEW OF SYSTEMS: Twelve point review of systems was conducted and is negative except that listed in the HPI. PAST MEDICAL HISTORY: 1. Hypertension. 2. Obesity. 3. Sleep apnea, with home CPAP at night. 4. Degenerative joint disease. 5. Left eye surgery after trauma with residual blurred vision. 6. Prior orchiopexy. ALLERGIES: None. HOME MEDICATIONS: Include lisinopril 20 mg daily, carvedilol 12.5 mg daily, aspirin 81 mg daily, and amlodipine 10 mg daily. SOCIAL HISTORY: He is . He works in maintenance for [employer]. Denies tobacco habituation, positive for alcohol consumption 1-2 beers during weekdays with binge drinking 6-8 beers on weekends (Sunday, Sunday, and Sunday). Negative for illicit drug use. FAMILY HISTORY: Positive for heart disease and multiple family members with cirrhosis. Mother had uterine cancer and hypertension. PHYSICAL EXAMINATION: VITAL SIGNS: Recent vital signs 98.6, pulse 60, respirations 20, 96% oxygen saturation on room air, blood pressure 133/71. GENERAL: This is a well-nourished, well-appearing, obese, male in no acute distress. HEENT: Normocephalic, atraumatic. He is alert and oriented. His speech is clear and affect is appropriate. His oral mucosa is moist and pink with adequate dentition. NECK: Supple without jugular venous distention. Thyroid is nonpalpable and there is no lymphadenopathy. His carotids are without bruit bilaterally with brisk bilateral 2+ uptake. LUNGS: His lungs are clear to auscultation bilaterally without wheezes, crackles or rhonchi. Respirations are even and unlabored with good bilateral excursion. HEART: Rate is regular without murmur, rub or gallop. His PMI is nonpalpable. EXTREMITIES: Warm and dry to touch without clubbing, cyanosis or edema. ABDOMEN: Soft, obese, and nontender without palpable masses. There are positive bowel sounds noted throughout. NEUROLOGIC: Grossly intact and nonfocal. He has a bandage from his recent heart catheterization. DATABASE: Laboratory on 02/18/2018, WBC 9.7, hematocrit 15.1, hemoglobin 44.7, platelet count 214. Chemistry: Sodium 139, potassium 3.9, chloride 102, carbon dioxide 29, BUN 16, creatinine 0.81, calcium 9.5, phosphorus 3.5, magnesium 2.2. TSH is 1.88, serial troponins were essentially negative, highest being 0.029. Telemetry review and a 12-lead review reveals atrial fibrillation with variable ventricular response. At times, the patient has been as low as 30 beats per minute with ventricular skipped beats. It seems to sustain in the 50-60 beat per minute range. On the , there is a 3.1 seconds pause documented and on 02/17/2018, the patient had a 10-beat run of nonsustained ventricular tachycardia. ASSESSMENT AND PLAN: 1. Newly diagnosed atrial fibrillation with variable ventricular response. Currently, Mr. Aguirre's beta blockers are on hold given his excessive nighttime bradycardia down in the 30 beat per minute range. If this continues to occur without rate controlling medications, the patient will require pacemaker implantation. He is currently on Eliquis for stroke prophylaxis given his atrial arrhythmia and we would recommend he undergo FRANCEHSCA with cardioversion before discharge from the hospital. We will continue to see him as an inpatient, but we will discuss additional atrial fibrillation therapies such as ablation as an outpatient in clinic in the future. 2. Elevated CHADS-VASc score of 2 on the basis of heart failure and hypertension, recommended Eliquis for anticoagulation at this time. If significant bleeding occurs or patient does not tolerate blood thinners, we can discuss left atrial appendage closure device in the future. 3. Cardiomyopathy with newly found systolic heart failure and reduced LVEF of 30%-35%. The patient underwent left heart catheterization today; however, result report is not available at this time. Recommend the patient be fitted for a LifeVest and discharged with this and reevaluate LVEF in 3 months' time. If ejection fraction remains low despite optimal heart failure medical management, he would be a candidate for ICD implantation. 4. Bradycardia, the patient has had severe bradycardia with heart rates in the 30 beat per minute range; however, this has done well taking moderate dose Coreg. This is on hold and while rates continue to be somewhat low in the 40- 50 range. We have not seen any additional severe bradycardia and he has not had any associated symptoms. There is one documented pause of 3.1 seconds which was still during the time where beta blockers could be in his system. Recommend he continued to be monitored and may need a monitor as an outpatient to evaluate for possible tachybrady syndrome. He may benefit from a pacemaker implantation regardless given his baseline bradycardia and newly found atrial fibrillation. 5. Excessive alcohol intake. I discussed with the patient how his binge drinking on the weekends is likely contributed to his atrial fibrillation. We recommend he at least cut back, but recommend he stop drinking alcohol at this time. 6. Obesity. We highly encouraged the patient to try to lose some weight and also keep his blood pressure under good control. 7. Atrial fibrillation was discussed at length with the patient and his . All their questions were answered. We discussed medical management. We discussed ablation management as well as FRANCHESCA and cardioversion. We also discussed cardiomyopathy and possible need for pacemaker with his bradycardia versus defibrillator with his reduced ejection fraction. All questions were answered. The patient and his verbalized understanding. Recommendation today is for continued Eliquis and FRANCHESCA with cardioversion before discharge. ALESIA
--- NOTE | 2018-02-19 13:18 | PDOC.CTH ---
Cardiology Progress Note - Subjective The pt seen and examined. No overnight events. No cardiac complaints. He is on LifeVest. - Objective Vital Signs Temp Pulse Resp BP BP BP Pulse Ox 02/19/18 13:03 98.4 F 72 16 137/77 99 02/19/18 09:40 63 140/75 02/19/18 08:00 97.6 F 63 16 140/75 94 L 02/19/18 04:18 98.2 F 75 20 120/76 97 Weight 275 lb 1 oz 02/18/18 02/19/18 02/20/18 06:59 06:59 06:59 Intake Total 720 1370 Output Total 550 1900 Balance 170 -530 - Physical Examination General/Neuro: alert & oriented x3 Neck: no JVD present Heart: other: (irregular) Abdomen: soft Extremities: other: (2+ pitting BLE edema) - Telemetry Telemetry Rhythm: Afib with HR 40-70s - Labs Result Diagrams: 02/18/18 04:57 02/18/18 04:57 Troponin/CKMB CK-MB (CK-2) 1.1 ng/mL (0-6.6) 02/13/18 17:08 Troponin I 0.026 ng/mL (< 0.028) 02/14/18 05:53 - Assessment/Plan 1. New Onset Afib with slow ventricular response - remains Afib with HR 40- 70s. Betablockers is on hold due to Hx of bradycardia with HR 20-30s. 2. New onset systolic HF- Echo on 02/15/18 showed EF 30-35%, mod LVH, mod dilated LA, mod JEAN, trace MR, and mild TR. S/p cardiac cath on 02/18/18 and the result is pending. On Lisinopril 20mg BID and HCTZ 25mg daily. Not on BBlocker due to Hx of bradycardia. 3. HTN - stable with current meds. 4. Obesity - weight management with diet and regular exercise. 5. Obstructive sleep apnea on CPAP at home MAR reviewed * d/c home with LifeVest and recheck EF with Echo within 1 month. Review of Systems - Review of Systems Constitutional: reports: no symptoms reported EENTM: reports: no symptoms reported Respiratory: reports: no symptoms reported Cardiac (ROS): reports: no symptoms reported ABD/GI: reports: no symptoms reported : reports: no symptoms reported Musculoskeletal: reports: no symptoms reported
--- NOTE | 2018-02-19 14:42 | PDOC.CTH ---
<Sugar Lambert - Last Filed: 02/19/18 14:41> Cardiology Progress Note - Subjective EP progress note: Patient seen and examined. Has done well overnight with no new cardiac complaints or concerns. Many questions about plan of care. No heart racing, palpitations, dizziness, passing out, or chest pain. - Objective Vital Signs Temp Pulse Resp BP BP BP Pulse Ox 02/19/18 13:03 98.4 F 72 16 137/77 99 02/19/18 09:40 63 140/75 02/19/18 08:00 97.6 F 63 16 140/75 94 L 02/19/18 04:18 98.2 F 75 20 120/76 97 Weight 275 lb 1 oz 02/18/18 02/19/18 02/20/18 06:59 06:59 06:59 Intake Total 720 1370 Output Total 550 1900 Balance 170 -530 - Physical Examination General/Neuro: alert & oriented x3, NAD Neck: carotid US brisk, no JVD present Lungs: CTA, unlabored respirations Heart: other: (Irregular.) Abdomen: NT/ND, soft (obese) Extremities: + edema B (2+ BLE) - Telemetry Telemetry Rhythm: AF - Labs Result Diagrams: 02/18/18 04:57 02/18/18 04:57 Troponin/CKMB CK-MB (CK-2) 1.1 ng/mL (0-6.6) 02/13/18 17:08 Troponin I 0.026 ng/mL (< 0.028) 02/14/18 05:53 - Assessment/Plan 1. Atrial arrhythmias- recommend FRANCHESCA with CV before DC either by Dr Hastings, or if Dr. Hastings wishes, Dr Ahuja will. If not before DC, then in 3 weeks with uninterrupted OAC, no FRANCHESCA needed. 2. Elevated CHADS-VASC= 2 (HTN and heart failure). Continue Eliquis 5mg BID 3. Bradycardia- continues to occur at night while sleeping, but not as severe as before. Rates in 40-50 range (vs 20-30 range on coreg). Likely associated with sleep apnea. Continue CPAP use. If patient becomes symptomatic or pauses/ SA node dysfunction seen other that is not related to AD, he may benefit from PPM implantation, especially with HF medications potentially further lowering his heart rate. 4. Nonischemic cardiomyopathy- Optimize medical management per cardiology. DC with lifevest (in place already). Recheck EF 3 months. If remains low, an ICD is indicated. OK for DC by EP. Clinic follow up in 4-6 weeks was requested <Jose Ahuja - Last Filed: 02/19/18 16:31> Cardiology Progress Note - Objective Vital Signs Temp Pulse Resp BP BP BP Pulse Ox 02/19/18 16:21 98.1 F 75 17 119/74 98 02/19/18 13:03 98.4 F 72 16 137/77 99 02/19/18 09:40 63 140/75 02/19/18 08:00 97.6 F 63 16 140/75 94 L Weight 275 lb 1 oz 02/18/18 02/19/18 02/20/18 06:59 06:59 06:59 Intake Total 720 1370 Output Total 550 1900 Balance 170 -530 - Labs Result Diagrams: 02/18/18 04:57 02/18/18 04:57 Troponin/CKMB CK-MB (CK-2) 1.1 ng/mL (0-6.6) 02/13/18 17:08 Troponin I 0.026 ng/mL (< 0.028) 02/14/18 05:53 Attending Addendum - Attending Addendum Date/Time: 02/19/18 1631 I personally evaluated the patient and discussed the management with Ms Lambert. I agree with the History, Examination, Assessment and Plan documented above with any addition or exceptions noted below.
[2018-02-19 16:21] VITALS: TEMP 98.1
[2018-02-19 16:40] VITALS: BP 135/80
[2018-02-19] MEDS ORDERED: Apixaban 5 MG TAB PO SCH (21:00)
--- NOTE | 2018-02-19 22:55 | DIS ---
DATE OF DISCHARGE: 02/19/2018 DISCHARGE DISPOSITION: Home. FOLLOWUP: With primary care physician, Dr. Honorio Newell as scheduled. No driving until cleared by Adam. Home CPAP to be continued. ALLERGIES: No known drug allergies. DISCHARGE MEDICATIONS: 1. Lisinopril 20 mg at night. 2. Lisinopril 20/25 daily. 3. Eliquis 5 mg b.i.d. (new medication). INPATIENT CONSULTANTS: 1. Cardiology, Dr. Hastings. 2. Electrophysiology, Dr. Ahuja. BRIEF HOSPITAL COURSE: The patient is a 58-year-old male with hypertension, hyperlipidemia, obstruct scar sleep apnea on CPAP, and obesity presented to the hospital with abnormal EKG/new-onset atrial fib rillation from his PCP's office. Please refer to the history and physical dated 02/13/2018 for furth er details. The patient was admitted to the hospital with a diagnosis of new-onset atrial fibrillation with slow ventricular response. His heart rate was dropping in 20s. Patient was monitored on the telemetry un it. He was started on anticoagulation with Lovenox that has been changed to Eliquis at discharge. C arvedilol has been discontinued due to bradycardia. He also had one episode of nonsustained ventricu lar tachycardia. Patient was evaluated by Cardiology and Electrophysiology. He was found to have new-onset congestive heart failure with ejection fraction of 30-35% with moderately enlarged right atrium, moderately dil ated left atrium. He underwent cardiac catheterization, results of which are pending at this time. He has been cleared by Cardiology and Electrophysiology for discharge. It is not limited to life threatening bleeding with anticoagulation discussed with the patient and th e family, they stated understanding. FINAL DIAGNOSES: 1. New-onset atrial fibrillation with slow ventricular response. Beta blockers have been discontinu ed. Patient will be discharged home with LifeVest. 2. Abnormal electrocardiogram. 3. New-onset systolic heart failure, ejection fraction 30-35%. The patient has nonischemic cardiomy opathy per Cardiology. Official cath report pending at this time. 4. Elevated troponin, probably secondary to demand ischemia. 5. Obesity with a BMI at 39.5. 6. Obstructive sleep apnea on CPAP. Plan of care was discussed with the patient and the family in detail. They stated understanding.
--- NOTE | 2018-02-23 21:01 | EKG ---
Test Reason : Blood Pressure : / mmHG Vent. Rate : 053 BPM Atrial Rate : 064 BPM P-R Int : 000 ms QRS Dur : 098 ms QT Int : 406 ms P-R-T Axes : 000 051 022 degrees QTc Int : 380 ms Atrial fibrillation with slow ventricular response with premature ventricular or aberrantly conducted complexes Abnormal ECG Confirmed by ERICKA GOODWIN, SIRI ([id number]), senior editor JUSTINA GUSTAFSON ([id number]) on 02/23/2018 9:01:19 PM Referred By: ERICKA Confirmed By:SIRI BARNETT MD
== END 2018-02-19 17:25 | disposition home or self-care (01) | DRG 286 ==
LOC: SCSER 16:35 → 2SW 17:36 → OBSVTOIN 02-14 17:49 → 2NO 02-14 20:22
PROVIDERS: ADMIT Internal Medicine; ATTEND Internal Medicine
PROC: 4A023N7 Measurement of Cardiac Sampling and Pressure, Left Heart, Percutaneous Approach (ICD-10-PCS; principal; 2018-02-18)
PROC: B2111ZZ Fluoroscopy of Multiple Coronary Arteries using Low Osmolar Contrast (ICD-10-PCS; 2018-02-18)
PROC: B2151ZZ Fluoroscopy of Left Heart using Low Osmolar Contrast (ICD-10-PCS; 2018-02-18)
DX: I48.91 Unspecified atrial fibrillation (principal); I50.21 Acute systolic (congestive) heart failure; I24.8 Other forms of acute ischemic heart disease; I42.9 Cardiomyopathy, unspecified; E66.9 Obesity, unspecified; E78.5 Hyperlipidemia, unspecified; I11.0 Hypertensive heart disease with heart failure; R00.1 Bradycardia, unspecified; G47.33 Obstructive sleep apnea (adult) (pediatric); Z68.39 Body mass index [BMI] 39.0-39.9, adult; Z79.82 Long term (current) use of aspirin; Z79.899 Other long term (current) drug therapy
CPT/HCPCS: 36415; 71045; 80053; 80069; 82553; 82565; 83735; 84443; 84484; 85014; 85018; 85025; 85049; 85610; 85730; 93005; 93306; 93458; 93798; 94660; 94760; 96372; A4216; C1769; J1644; J1650; J2001

== ENCOUNTER → 2018-04-16 | Day surgery (SDC) | payer BC ==
[2018-04-12 14:22] VITALS: BMI 37.8
[~2018-04-16] MED LIST: Dronedarone HCl 400 MG TAB ONE; PROPOFOL 20 ML ONE; PROPOFOL 200 MG/20 ML VIAL ONE
--- NOTE | 2018-04-16 23:50 | ECHO ---
INDICATION FOR PROCEDURE: A 58-year-old patient with intermittent atrial fibrillation and cardiomyop athy and hypertension. He was advised to undergo electrical cardioversion of the atrial fibrillation back to sinus rhythm to see if this would help improve his ejection fraction. He was taken to the recovery area where he underwent short acting propofol and then he underwent a tr ansesophageal echocardiogram prior to the procedure. The first procedure will be for the transesopha geal echocardiogram. OVERALL IMPRESSION: 1. Ejection fraction 50-55%. 2. Left atrial dilatation of approximately 4.6-5.3 cm in diameter. 3. Mild mitral valve regurgitation. 4. Mild to moderate tricuspid valve regurgitation. 5. Normal aortic valve structures. 6. No evidence of left atrial appendage thrombus. 7. No evidence of left atrial thrombus. However, there was smoke formation noted in the left atrial appendage. There were no difficulties or complications encountered.
--- NOTE | 2018-04-16 23:53 | EKG ---
Test Reason : PREOP Blood Pressure : / mmHG Vent. Rate : 057 BPM Atrial Rate : 326 BPM P-R Int : 000 ms QRS Dur : 102 ms QT Int : 432 ms P-R-T Axes : 000 055 003 degrees QTc Int : 420 ms Atrial fibrillation with slow ventricular response with premature ventricular or aberrantly conducted complexes Low voltage QRS Abnormal ECG When compared with ECG of 13-FEB-2018 16:39, No significant change was found Confirmed by Radah KENDALL ([id number]) on 04/16/2018 11:52:54 PM Referred By: FAIZA Confirmed By:Radha KENDALL
--- NOTE | 2018-04-16 23:54 | OP ---
DATE OF PROCEDURE: 04/16/18 INDICATION FOR PROCEDURE: Atrial fibrillation with cardiomyopathy in the hopes of the improving the function of the heart by maintaining sinus rhythm may improve his overall ejection fraction After transesophageal echocardiogram indicated that there was no left atrial or left atrial appendage thrombus. He underwent electrical cardioversion using one attempt at 250 joules. He was successfull y converted back to sinus rhythm with a heart rate in the 50s. There were no difficulties or complic ations encountered. The blood pressure remained stable as well as the heart rate. IMPRESSION: Successful cardioversion of atrial fibrillation back to sinus rhythm.
--- NOTE | 2018-04-17 10:00 | DIS ---
DATE OF ADMISSION: 04/16/2018 DATE OF DISCHARGE: 04/16/2018 DATE OF OUTPATIENT PROCEDURE: 04/16/2018. DIAGNOSES: 1. Atrial fibrillation. 2. Cardiomyopathy. 3. Hypertension. DISCHARGE DIAGNOSES: 1. Atrial fibrillation. 2. Cardiomyopathy. 3. Hypertension. He was converted to sinus rhythm. He remains in sinus rhythm at this time. DISCHARGE MEDICATIONS: Same as his admission medications. Furosemide 20 mg a day, amlodipine 10 mg a day. He has been started on Entresto 24/26 mg one twice a day, vitamin D3 as well as iron and Eliq uis 5 mg a day. He is also on Eliquis 5 mg b.i.d. Please note that he will be started on Multaq 400 mg b.i.d. I will decrease the dose of the Norvasc to 5 mg a day from 10 mg then he was previously on see whether or not he will maintain sinus rhythm w ith the Multaq. FOLLOWUP: His followup will be with me in the next 2-4 weeks in the office. He will continue his celestina dhaliwal followup with the primary care physician. PROCEDURES IN HOSPITAL: Included transesophageal echocardiogram and also electrocardioversion of atr ial fibrillation back to sinus rhythm. HOSPITAL COURSE: This is a very pleasant 58-year-old gentleman who has a history of intermittent atr ial fibrillation. He has been placed on medical management with anticoagulation and transesophageal echocardiogram indicated that he may be a reasonable candidate to undergo cardioversion of atrial fib rillation back to sinus rhythm. This was performed today without difficulties or complications. The transesophageal echocardiogram was done indicating left atrial or left atrial appendage thrombus. Santos freeman has a normal ejection fraction of 50%-55% with mild to moderate tricuspid valve regurgitation, mild mitral valve regurgitation. He underwent electrical cardioversion with one attempt at 250 joules an d he remained in sinus rhythm with a heart rate in the 50s. I will see him back in the office to ens ure that he maintain sinus rhythm. We will also consider starting medications to maintain his sinus rhythm. He has a nonischemic cardiomyopathy. Beta blockers may be a possibility; however, he has be en bradycardic and somewhat hesitant to start beta blockers at this time. I will need to discuss his case with the optical model maker and tester. If he continues to have bradycardia, he may need to undergo pace maker insertion. I have already explained that to him, but if ejection fraction did not improve, the n he will most likely be a candidate to undergo an AICD implant.
== END ==
LOC: CCL 06:52
PROVIDERS: ATTEND Internal Medicine Cardiovascular Disease
PROC: B246ZZ4 Ultrasonography of Right and Left Heart, Transesophageal (ICD-10-PCS; principal; 2018-04-16)
PROC: 5A2204Z Restoration of Cardiac Rhythm, Single (ICD-10-PCS; principal; 2018-04-16)
DX: I48.0 Paroxysmal atrial fibrillation (principal); I34.0 Nonrheumatic mitral (valve) insufficiency; I36.1 Nonrheumatic tricuspid (valve) insufficiency; I11.0 Hypertensive heart disease with heart failure; I50.23 Acute on chronic systolic (congestive) heart failure; I42.8 Other cardiomyopathies; G47.33 Obstructive sleep apnea (adult) (pediatric); Z87.891 Personal history of nicotine dependence; Z79.01 Long term (current) use of anticoagulants; Z79.899 Other long term (current) drug therapy; Z99.89 Dependence on other enabling machines and devices
CPT/HCPCS: 92960; 93005; 93010; 93312; J2704

== ENCOUNTER 2019-01-30 05:46 | Observation (INO) | payer BC ==
[2019-01-29 13:49] VITALS: BMI 36.6
[2019-01-30 06:38] LABS: #Basophils 0.1 thou/uL (0.0-0.2); #Eosinphils 0.2 thou/uL (0.0-0.7); #Lymphocytes 1.6 thou/uL (1.20-3.40); #Monocytes 0.6 thou/uL (0.11-0.59); #Neutrophils 4.2 thou/uL (1.40-6.50); %Basophils 1.4 % (0.0-1.0); %Lymphocytes 23.8 % (21.0-51.0); %Monocytes 8.4 % (0.0-10.0); %Neutrophils 63.5 % (42.0-75.0); Hemoglobin 14.3 g/dL (14.0-18.0); Mean Corpuscular HGB CONC 32.7 g/dL (32.0-36.0); Mean Corpuscular Hemoglobin 30.4 pg (27.0-31.0); Mean Corpuscular Volume 92.9 fL (78.0-98.0); Mean Platelet Volume 7.1 fL (7.4-10.4); Platelet Count 195 thou/uL (130-400); RBC Distribution Width 12.2 % (11.5-14.5); Red Blood Cell (RBC) Count 4.72 mill/uL (4.70-6.10); White Blood Cell (WBC) Count 6.6 thou/uL (4.8-10.8)
[2019-01-30 06:44] LABS: INR-International Normal Ratio 1.1; Prothrombin Time 14.2 SEC (12.0-14.7)
[2019-01-30 06:45] LABS: PTT 33.7 SEC (22.9-36.1)
[2019-01-30 06:56] LABS: Anion Gap 14 mmol/L (10-20); BUN (Urea Nitrogen) 16 mg/dL (8.4-25.7); Calc. Creatinine Clearance 170 mL/min (70-130); Calcium 9.1 mg/dL (7.8-10.44); Carbon Dioxide 24 mmol/L (23-31); Chloride 108 mmol/L (98-107); Estimated GFR-MDRD Greater than 90; Glucose 106 mg/dL (80-115); Potassium 4.2 mmol/L (3.5-5.1); Sodium 142 mmol/L (136-145)
[2019-01-30] MEDS ORDERED: Heparin 10,000 UNITS/1 ML VIAL ONE ×2 (07:24→10:13)
[2019-01-30] MEDS ORDERED: Fentanyl 100 MCG/2 ML VIAL ONE ×2 (07:25→13:27)
[2019-01-30] MEDS ORDERED: Phenylephrine HCL 10 MG/ML VIAL ONE (07:25)
[2019-01-30] MEDS ORDERED: Heparin 25,000 units/D5W 500 ML ONE (09:39)
[2019-01-30] MEDS ORDERED: Isoproterenol 0.2 MG/1 ML AMP ONE (10:25)
[2019-01-30] MEDS ORDERED: Lidocaine 1% PF 5 ML VIAL ONE (12:36)
[2019-01-30] MEDS ORDERED: Ondansetron PF 4 MG/2 ML Vial ONE (12:36)
[2019-01-30] MEDS ORDERED: diphenhydrAMINE 50 MG/ML VIAL ONE (12:36)
[2019-01-30] MEDS ORDERED: Rocuronium Bromide 10 MG/ML (10ML VIAL) ONE (12:36)
[2019-01-30] MEDS ORDERED: Heparin 30,000 units/30 ml VIAL ONE (12:36)
[2019-01-30] MEDS ORDERED: PROPOFOL 200 MG/20 ML VIAL ONE (12:36)
[2019-01-30] MEDS ORDERED: Protamine Sulfate 50 MG/5 ML VIAL ONE ×2 (12:36→12:53)
[2019-01-30] MEDS ORDERED: Glycopyrrolate 0.2 MG/ML 5 ML SYRINGE ONE (12:36)
[2019-01-30] MEDS ORDERED: PHENYLEPHRINE-NS 100 MCG/ML 10 ML SYRINGE ONE (12:36)
[2019-01-30] MEDS ORDERED: Protamine Sulfate 250 MG/25 ML VIAL ONE (12:36)
[2019-01-30] MEDS ORDERED: Ketorolac Tromethamine 30 MG/ML VIAL IVP PRN (14:42)
[2019-01-30] MEDS ORDERED: Promethazine HCl 25 MG/ML VIAL IM/IV PRN (14:43)
[2019-01-30] MEDS ORDERED: Ondansetron HCl/PF 4 MG/2 ML Vial IVP PRN (14:43)
[2019-01-30] MEDS ORDERED: Non-Formulary Medication 1 EACH PO PRN (14:43)
[2019-01-30] MEDS ORDERED: Acetaminophen/Codeine 30-300mg Tablet PO PRN ×2 (14:45)
[2019-01-30 14:56] LABS: #Eosinphils 0.1 thou/uL (0.0-0.7); #Lymphocytes 1.8 thou/uL (1.20-3.40); #Monocytes 1.5 thou/uL (0.11-0.59); #Neutrophils 12.2 thou/uL (1.40-6.50); %Basophils 0.3 % (0.0-1.0); %Eosinophils 0.4 % (0.0-10.0); %Lymphocytes 11.3 % (21.0-51.0); %Monocytes 9.5 % (0.0-10.0); %Neutrophils 78.5 % (42.0-75.0); Hemoglobin 14.8 g/dL (14.0-18.0); Mean Corpuscular HGB CONC 31.4 g/dL (32.0-36.0); Mean Corpuscular Hemoglobin 30.1 pg (27.0-31.0); Mean Corpuscular Volume 95.9 fL (78.0-98.0); Mean Platelet Volume 7.3 fL (7.4-10.4); Platelet Count 181 thou/uL (130-400); RBC Distribution Width 12.2 % (11.5-14.5); Red Blood Cell (RBC) Count 4.91 mill/uL (4.70-6.10); White Blood Cell (WBC) Count 15.5 thou/uL (4.8-10.8)
--- NOTE | 2019-01-30 16:16 | OP ---
DATE OF PROCEDURE: 01/30/2019 PROCEDURE PERFORMED: Electrophysiology study and radiofrequency ablation. REFERRING PHYSICIAN: Larissa Hastings MD. REASON FOR PROCEDURE: Mr. Aguirre is a 59-year-old man with prior history of CHF, reduced LVEF, possible rate-related cardiomyopathy with improved LV function with restoring sinus rhythm after persistent atrial fibrillation. He was on Multaq, but recurrent atrial fibrillation was seen and he is here for radiofrequency ablation. He also has sleep apnea, obesity, BMI of 36. Anticoagulated with Eliquis and he states holding it only this morning. DESCRIPTION OF PROCEDURE: The patient received propofol and general anesthesia by Anesthesia specialist. The left and right femoral venous area was prepped, draped, and anesthetized using subcutaneous lidocaine and under ultrasound guidance, both femoral veins were accessed x2. On the left side, an 11-Mexican sheath was advanced with intracardiac echo catheter to the right atrium. An 8-Mexican short sheath was exchanged to a Preface sheath on the left femoral venous access and this was later used to advanced a DuoDeca catheter to the right atrium and CS position. From the right side, two 8-Mexican sheath were introduced through which a ThermoCool SFST catheter was advanced to the right atrium and 3D map of the right atrium was obtained. Following that, the ThermoCool catheter was removed and the 8-Mexican sheaths were exchanged to an SL1 sheath x2. After heparin bolus, which was monitored throughout the procedure to keep ACT over 350. He underwent a transseptal procedure with intracardiac echo monitoring. Fluoroscopy was also used. Both SL1 sheaths were placed in the left atrium this way and a 20-pole deflectable Lasso catheter and a ThermoCool SFST catheter was used to obtain left atrial map. Following that, pulmonary venous isolation performed in all four veins. The posterior wall was also isolated with roof and inferior lines placed. Further ablations were placed in the base of the left atrium over the roof of the coronary sinus due to fractionated electrograms. The roof of the left atrium was also isolated with additional lines. Further ablation was performed at the intra- atrial septum on the left atrial side, possibly underestimating the full left atrium is about 170 mL. The significant amount of scarring was noted in the left atrium. After all these ablation lesions placed, the patient remained in atrial fibrillation. Cardioversion performed at 360 joules and eventually converted him back to sinus rhythm that way. The Isuprel was administered at this point and any reconnections were re- ablated. Also left atrial pacing was performed. Following findings were noted at baseline atrial fibrillation noted. QRS with 101 milliseconds, QT 389 milliseconds, HV was measured to be 44 milliseconds. After cardioversion, the patient was in sinus rhythm. Retrograde Wenckebach cycle length was 520 milliseconds at LV pacing. No evidence of accessory pathway was noted with normal VA, activation sequence is noted on the DuoDeca catheter. The AV Wenckebach cycle was about 310 milliseconds. With burst atrial pacing on Isuprel, we were able to induce typical atrial flutter. The flutter cycle length was 219 milliseconds. The activation sequence appears to be typical, but overdrive pacing maneuvers terminated this flutter. Occasional PACs noted in the CS area. Also possible appendage PACs are rarely seen, but did not want to induce atrial fibrillation at this time. The total time of ablation delivered from the left side was 47 minute at 40 zabala delivered. On Isuprel, any reconnections were sought out and re-ablated. The right-sided atrial flutter line was also placed. CONCLUSION: 1. Successful pulmonary venous isolation, posterior wall roof, and basal left atrial septal ablation performed. 2. Scientologist of sinus rhythm with cardioversion. 3. Inducible atrial flutter at the end of the case, appears to be typical, status post cavotricuspid isthmus line ablation. 4. No evidence of effusion by ICE and cardiac silhouette on the cine graphy at the end of the case. PLAN: Continue Eliquis. Consider restarting the antiarrhythmic agents if further atrial arrhythmias are seen early after the ablation. Routine monitoring. Job ID: [id number] [facility]
--- NOTE | 2019-01-30 18:19 | EKG ---
Test Reason : PREOP Blood Pressure : / mmHG Vent. Rate : 054 BPM Atrial Rate : 214 BPM P-R Int : 000 ms QRS Dur : 102 ms QT Int : 434 ms P-R-T Axes : 000 -01 035 degrees QTc Int : 411 ms Atrial fibrillation with slow ventricular response Low voltage QRS Cannot rule out Inferior infarct , age undetermined Abnormal ECG When compared with ECG of 16-APR-2018 08:33, Questionable change in QRS axis Confirmed by DR. Hiren CORADO ([id number]) on 01/30/2019 6:19:06 PM Referred By: CANDELARIA Confirmed By:DR. Hiren CORADO
--- NOTE | 2019-01-30 20:32 | EKG ---
Test Reason : S/P ABLATION Blood Pressure : / mmHG Vent. Rate : 059 BPM Atrial Rate : 059 BPM P-R Int : 000 ms QRS Dur : 116 ms QT Int : 456 ms P-R-T Axes : 077 077 061 degrees QTc Int : 451 ms Sinus bradycardia with 1st degree A-V block with Premature atrial complexes Low voltage QRS Incomplete left bundle branch block abnormal EKG When compared with ECG of 30-JAN-2019 06:54, (Unconfirmed) Sinus rhythm has replaced Atrial fibrillation Questionable change in QRS axis Confirmed by DR. Hiren CORADO ([id number]) on 01/30/2019 8:32:39 PM Referred By: [facility] Confirmed By:DR. Hiren CORADO
[2019-01-30] MEDS: Apixaban 5 MG TAB PO SCH (20:50)
[2019-01-30] MEDS ORDERED: Rosuvastatin 10 MG TAB PO SCH (21:00)
[2019-01-31] MEDS ORDERED: Potassium Chloride 10 MEQ TAB PO SCH (08:00)
[2019-01-31] MEDS ORDERED: Calcium Carbonate 600 MG TAB PO SCH (09:00)
[2019-01-31] MEDS ORDERED: Sacubitril 24.5 MG/Valsartan 25.5 MG TABLET PO SCH (09:00)
[2019-01-31] MEDS ORDERED: Carvedilol 3.125 MG TAB PO SCH (09:00)
[2019-01-31] MEDS ORDERED: Amlodipine 5 MG TAB PO SCH (09:00)
[2019-01-31] MEDS ORDERED: Furosemide 40 MG TAB PO SCH (09:00)
[2019-01-31] MEDS: Apixaban 5 MG TAB PO SCH (09:06)
[2019-01-31 12:51] VITALS: BP 134/73; TEMP 97.9
--- NOTE | 2019-01-31 15:06 | DIS ---
DATE OF ADMISSION: 01/30/2019 DATE OF DISCHARGE: 01/31/2019 REFERRING PHYSICIAN: Larissa Hastings M.D. PROBLEMS: 1. Recurrent atrial arrhythmias. a. Persistent atrial fibrillation despite repeated cardioversions and Multaq therapy. b. Status post elective pulmonary venous isolation, posterior wall, septal, inferobasal, roof, left atrial ablation on 01/30/2019. 2. History of CHF with LV dysfunction. 3. Elevated body mass index. 4. Chronic anticoagulation. ALLERGIES: NONE. MEDICATION ON DISCHARGE: Will include: 1. Apixaban 5 mg twice daily. 2. Norvasc 5 mg daily. 3. Coreg 3.125 mg twice daily. 4. Cholecalciferol. 5. Fentanyl. 6. Furosemide 4 mg in the morning. 7. He will be discharged on a potassium chloride 10 mEq daily. 8. He is also taking Crestor 10 mg p.o. at bedtime. 9. Entresto 24/25 mg twice daily. 10. He was also given Protonix 40 mg daily for the next 2-3 weeks. 11. Sucralfate 1 g q.i.d. as well. 12. He was restarted on dronedarone (Multaq) 400 mg twice daily on discharge. HOSPITAL COURSE: Mr. Aguirre has undergone an elective pulmonary venous isolation procedure. He has tolerated procedure well. Extensive lablation (47min) isolating all 4 pulmonary veins, posterior wall, but also segments of the roof and the inferobasal area were extensively ablated. He had no evidence of complications. Subsequent day, his groin sites were without signs of hematoma. His blood pressure remained stable. His heart rates also were well controlled. He had a transient episode of atrial flutter, which one time did convert back to sinus rhythm before discharge. PHYSICAL EXAMINATION: VITAL SIGNS: Showed blood pressure 134/73, heart rate 76, respirations 20, temperature 97.9 before discharge. Telemetry strips were reviewed again revealing the above. Postablation blood work revealed mild white cell count elevation of 15.5 compared to baseline. Hemoglobin remained stable at 14.8, platelet count is 181. PLAN: He was discharged home after standard post ablation instructions were given to him by my nurse practitioner. She has explained to him the potential need for coming back to the ER in case of complications, fever, chills, loss of consciousness, or stroke-like symptoms or bleeding issues. He is going to follow up in our office in 6 weeks and continue the above medications. Job ID: [id number] ALESIA
== END 2019-01-31 13:02 | disposition home or self-care (01) ==
LOC: CCL 05:46 → 2SW 13:51
PROVIDERS: ADMIT Internal Medicine Cardiovascular Disease; ATTEND Internal Medicine Cardiovascular Disease
PROC: 02583ZZ Destruction of Conduction Mechanism, Percutaneous Approach (ICD-10-PCS; principal; 2019-01-30)
PROC: 02K83ZZ Map Conduction Mechanism, Percutaneous Approach (ICD-10-PCS; 2019-01-30)
PROC: 4A023FZ Measurement of Cardiac Rhythm, Percutaneous Approach (ICD-10-PCS; 2019-01-30)
PROC: 4A0234Z Measurement of Cardiac Electrical Activity, Percutaneous Approach (ICD-10-PCS; 2019-01-30)
DX: I48.1 Persistent atrial fibrillation (principal); I50.22 Chronic systolic (congestive) heart failure; G47.33 Obstructive sleep apnea (adult) (pediatric); E66.9 Obesity, unspecified; Z68.36 Body mass index [BMI] 36.0-36.9, adult; Z79.01 Long term (current) use of anticoagulants; Z79.899 Other long term (current) drug therapy
CPT/HCPCS: 36415; 76942; 80048; 85025; 85347; 85610; 85730; 92960; 93005; 93010; 93613; 93622; 93623; 93655; 93656; 93662; 96374; C1730; C1731; C1732; C1759; G0378; J1200; J1644; J1885; J2001; J2370; J2405; J2704; J2720; J3010

== ENCOUNTER 2019-03-17 09:51 | Day surgery (SDC) | payer BC ==
[2019-03-14 08:43] VITALS: BMI 37.3
[2019-03-17 11:04] LABS: #Basophils 0.1 thou/uL (0.0-0.2); #Eosinphils 0.3 thou/uL (0.0-0.7); #Lymphocytes 1.6 thou/uL (1.20-3.40); #Monocytes 0.6 thou/uL (0.11-0.59); #Neutrophils 4.8 thou/uL (1.40-6.50); %Basophils 0.8 % (0.0-1.0); %Eosinophils 3.7 % (0.0-10.0); %Lymphocytes 21.8 % (21.0-51.0); %Monocytes 7.6 % (0.0-10.0); %Neutrophils 66.1 % (42.0-75.0); Mean Corpuscular HGB CONC 32.3 g/dL (32.0-36.0); Mean Corpuscular Volume 92.9 fL (78.0-98.0); Mean Platelet Volume 7.4 fL (7.4-10.4); Platelet Count 209 thou/uL (130-400); RBC Distribution Width 12.3 % (11.5-14.5); Red Blood Cell (RBC) Count 4.99 mill/uL (4.70-6.10); White Blood Cell (WBC) Count 7.3 thou/uL (4.8-10.8)
[2019-03-17 11:11] LABS: INR-International Normal Ratio 1.1; Prothrombin Time 14.6 SEC (12.0-14.7)
[2019-03-17 11:12] LABS: PTT 36.3 SEC (22.9-36.1)
[2019-03-17 11:27] LABS: Anion Gap 13 mmol/L (10-20); BUN (Urea Nitrogen) 17 mg/dL (8.4-25.7); Calc. Creatinine Clearance 175 mL/min (70-130); Calcium 9.4 mg/dL (7.8-10.44); Carbon Dioxide 23 mmol/L (23-31); Chloride 107 mmol/L (98-107); Estimated GFR-MDRD Greater than 90; Glucose 96 mg/dL (80-115); Potassium 4.3 mmol/L (3.5-5.1); Sodium 139 mmol/L (136-145)
[2019-03-17] MEDS ORDERED: PROPOFOL 20 ML ONE (13:05)
[2019-03-17] MEDS ORDERED: PROPOFOL 200 MG/20 ML VIAL ONE (16:48)
--- NOTE | 2019-03-17 18:46 | OP ---
DATE OF PROCEDURE: 03/17/2019 PROCEDURE PERFORMED: Electrical cardioversion. REASON FOR PROCEDURE: Mr. Aguirre is a 59-year-old male, who underwent a recent pulmonary venous isolation procedure on 01/30/2019. He had the recurrence of persistent atrial arrhythmias and is here. He has been tried on Multaq, but eventually propafenone 325 mg twice a day as was the current antiarrhythmic medication he has been taking along with his anticoagulation without a fail. Here for a cardioversion. DESCRIPTION OF PROCEDURE: The patient received propofol by Anesthesia specialist. After adequate level of sedation achieved, a synchronized 100 joule and then later a 200 joule shock failed to converted him back to sinus rhythm. The pads were at this point, repositioned and a 360 joule shock converted him back to sinus rhythm with the rhythm is heart rate 54, sinus rhythm. The patient tolerated the procedure well. No complications noted. PLAN: Continue anticoagulation, propafenone, and routine office followup. Job ID: [id number]
== END 2019-03-17 15:10 | disposition home or self-care (01) ==
LOC: CCL 09:51
PROVIDERS: ATTEND Internal Medicine Cardiovascular Disease
PROC: 5A2204Z Restoration of Cardiac Rhythm, Single (ICD-10-PCS; principal; 2019-03-17)
DX: I48.1 Persistent atrial fibrillation (principal); E66.9 Obesity, unspecified; Z68.37 Body mass index [BMI] 37.0-37.9, adult; Z79.01 Long term (current) use of anticoagulants; Z79.899 Other long term (current) drug therapy; Z98.890 Other specified postprocedural states
CPT/HCPCS: 36415; 80048; 85025; 85610; 85730; 92960; 93005; 93010; J2704

== ENCOUNTER 2019-06-06 09:55 | Outpatient (CLI) | payer BC ==
[2019-06-06 12:28] LABS: #Basophils 0.1 thou/uL (0.0-0.2); #Eosinphils 0.2 thou/uL (0.0-0.7); #Lymphocytes 1.6 thou/uL (1.20-3.40); #Monocytes 0.6 thou/uL (0.11-0.59); %Basophils 0.6 % (0.0-1.0); %Eosinophils 2.1 % (0.0-10.0); %Lymphocytes 18.9 % (21.0-51.0); %Monocytes 7.7 % (0.0-10.0); %Neutrophils 70.8 % (42.0-75.0); Hemoglobin 14.2 g/dL (14.0-18.0); Mean Corpuscular HGB CONC 30.9 g/dL (32.0-36.0); Mean Corpuscular Hemoglobin 28.9 pg (27.0-31.0); Mean Corpuscular Volume 93.6 fL (78.0-98.0); Mean Platelet Volume 7.6 fL (7.4-10.4); Platelet Count 185 thou/uL (130-400); RBC Distribution Width 12.5 % (11.5-14.5); Red Blood Cell (RBC) Count 4.92 mill/uL (4.70-6.10); White Blood Cell (WBC) Count 8.4 thou/uL (4.8-10.8)
[2019-06-06 12:30] LABS: INR-International Normal Ratio 1.2; PTT 37.7 SEC (22.9-36.1); Prothrombin Time 14.7 SEC (12.0-14.7)
[2019-06-06 12:42] LABS: Anion Gap 11 mmol/L (10-20); BUN (Urea Nitrogen) 13 mg/dL (8.4-25.7); Calc. Creatinine Clearance 0 mL/min (70-130); Calcium 9.3 mg/dL (7.8-10.44); Carbon Dioxide 28 mmol/L (23-31); Chloride 108 mmol/L (98-107); Estimated GFR-MDRD Greater than 90; Glucose 109 mg/dL (80-115); Potassium 4.1 mmol/L (3.5-5.1); Sodium 143 mmol/L (136-145)
--- NOTE | 2019-06-06 17:23 | EKG ---
Test Reason : Blood Pressure : / mmHG Vent. Rate : 078 BPM Atrial Rate : 078 BPM P-R Int : 316 ms QRS Dur : 108 ms QT Int : 382 ms P-R-T Axes : 041 228 004 degrees QTc Int : 435 ms atrial flutter Right superior axis deviation Incomplete right bundle branch block Possible Right ventricular hypertrophy Inferior infarct , age undetermined Abnormal ECG When compared with ECG of 17-MAR-2019 11:31, (Unconfirmed) Sinus rhythm has replaced Atrial fibrillation Incomplete right bundle branch block has replaced Incomplete left bundle branch block Confirmed by DR. Hiren CORADO ([id number]) on 06/06/2019 5:23:01 PM Referred By: CHARLES Confirmed By:DR. Hiren CORADO
== END 2019-06-06 09:56 | disposition home or self-care (01) ==
LOC: LABBT 09:55
PROVIDERS: ATTEND Specialist
DX: Z01.818 Encounter for other preprocedural examination (principal); I48.91 Unspecified atrial fibrillation
CPT/HCPCS: 80048; 85025; 85610; 85730; 93005; 93010

== ENCOUNTER 2019-06-10 06:00 | Observation (INO) | payer BC ==
[2019-06-06 11:50] VITALS: BMI 38.0
[2019-06-10] MEDS ORDERED: Isoproterenol 0.2 MG/1 ML AMP ONE ×2 (06:31→09:04)
[2019-06-10] MEDS ORDERED: Heparin 10,000 UNITS/1 ML VIAL ONE ×2 (06:31→09:04)
[2019-06-10] MEDS ORDERED: Lidocaine 1% (PF) 30 ML VIAL ONE (06:46)
[2019-06-10] MEDS ORDERED: Protamine Sulfate 50 MG/5 ML VIAL ONE (09:36)
[2019-06-10] MEDS ORDERED: Fentanyl 100 MCG/2 ML VIAL ONE (09:48)
--- NOTE | 2019-06-10 11:07 | OP ---
DATE OF PROCEDURE: 06/10/2019 PROCEDURE PERFORMED: Ablation for atrial fibrillation. PREOPERATIVE DIAGNOSES: Atrial fibrillation and atypical flutter. POSTOPERATIVE DIAGNOSES: Atypical atrial flutter and atrial fibrillation. PROCEDURE IN DETAIL: The patient came to the EP lab in the postabsorptive state. Informed consent was obtained. A time-out was called. The patient was sedated by member of the Anesthesia Staff. Once the patient was adequately sedated, the left and right femoral regions were prepped and draped in usual sterile fashion as was the jugular area. Using ultrasound guidance and modified Seldinger technique, access was obtained x2 in the right femoral vein, x1 in the left femoral vein, and x1 in the left internal jugular vein. A 20-pole catheter was advanced from the internal jugular vein with the distal 10 poles in the coronary sinus for left atrial pacing and recording of the proximal 10 poles along the annelise terminalis area. Intracardiac echo was advanced from the left femoral vein for intraprocedural guidance and monitoring. Two transseptal punctures were obtained after exchanging the sheaths in the right femoral vein. A LA multipurpose sheath was placed and an SL0 sheath was placed. Through these, a circular mapping catheter and a radiofrequency ablation catheter, which was a Carto STSF F-curve catheter was advanced. A three dimensional electroanatomical map was created of the patient's rhythm. The patient was in atypical flutter with a cycle length of approximately 270 milliseconds. When they came in, the flutter was mapped to an area in the posterior wall. It was noted that the pulmonary veins appeared to have regained conduction from the prior ablation and required re-isolation. Re-isolation of the pulmonary veins was performed as was termination of the atrial flutter in the posterior wall near the right inferior pulmonary vein. Further radiofrequency ablation was performed to isolate the posterior wall of the left atrium. After this, the patient was given isoproterenol and pacing was performed in the left ventricle as well as the left atrium. At total of 19 minutes of radiofrequency were delivered. The final cycle length after Isuprel was 633, LA interval was 195, QRS 95, QT 405, and HV interval was 54 milliseconds. The patient tolerated the procedure well. Protamine was given to reverse the heparin, which had been initially given prior to transseptal puncture. The intracardiac echo was utilized to determine that there was no evidence of complication in both femoral regions. Hemostasis was obtained by using a Vascade closure device. The patient tolerated the procedure well and was therefore discharged from the EP lab in stable condition. COMPLICATIONS: None acute. CONCLUSIONS: 1. Successful radiofrequency ablation for atypical flutter. 2. Successful re-isolation of pulmonary veins in the posterior wall of the left atrium. RECOMMENDATIONS: The patient will be at bed rest. The patient will follow up with Electrophysiology in 6 to 8 weeks. He will continue anticoagulant therapy. Job ID: [id number]
[2019-06-10] MEDS ORDERED: Sodium Chloride 0.9% 1,000 ML IV SCH (12:15)
[2019-06-10] MEDS: Carvedilol 3.125 MG TAB PO SCH (22:05)
[2019-06-11] MEDS: Carvedilol 3.125 MG TAB PO SCH (08:25)
[2019-06-11 08:48] VITALS: BP 141/68; TEMP 98.9
[2019-06-11] MEDS ORDERED: Furosemide 20 MG TAB PO SCH (09:00)
[2019-06-11] MEDS ORDERED: Calcium Carbonate 600 MG TAB PO SCH (09:00)
[2019-06-11] MEDS ORDERED: Potassium Chloride 10 MEQ TAB PO SCH (09:00)
[2019-06-11] MEDS ORDERED: Apixaban 5 MG TAB PO SCH (09:00)
[2019-06-11] MEDS ORDERED: Rosuvastatin 10 MG TAB PO SCH (09:00)
[2019-06-11] MEDS ORDERED: Amlodipine 5 MG TAB PO SCH (09:00)
--- NOTE | 2019-06-11 14:45 | DIS ---
DATE OF ADMISSION: 06/10/2019 DATE OF DISCHARGE: 06/11/2019 This is Nora Wells NP dictating a report for Jose Ahuja MD. FINAL DISCHARGE DIAGNOSES: 1. Persistent atypical atrial flutter in spite of pulmonary venous isolation on 01/30/2019. 2. Hypertensive heart disease with left ventricular hypertrophy. 3. History of left ventricular dysfunction with left ventricular ejection fraction of 30% to 35%, probably tachycardia mediated and improved after 50% to 55%. 4. Obstructive sleep apnea. 5. Obesity. 6. Severe left atrial enlargement with left atrial dimension of 5.2 cm. PROCEDURES: On 06/10/2019, the patient underwent redo-pulmonary venous antrum isolation by Dr. Trey Enamorado. SUMMARY: Leon Aguirre is a 59-year-old male patient, who has history of persistent atrial fibrillation. He underwent pulmonary venous isolation in January of this year by Dr. Ahuja. He experienced persistent late recurrence of atypical atrial flutter and failed antiarrhythmic drug therapy with Multaq and propafenone. He was recommended for further left atrial ablative therapy. This was accomplished by Dr. Enamorado without incident. Postprocedure, the patient was maintaining sinus mechanism. Overnight, he experienced some swelling of the right side of his neck related to venipuncture. This morning, the swelling has improved. There was no evidence of ecchymosis. There was a sense of maybe a small hematoma. The patient was comfortable. PHYSICAL EXAMINATION: On discharge; GENERAL: The patient is a well appearing, in no apparent distress. VITAL SIGNS: Pulse 76, respirations 16, and blood pressure 132/84. NECK: Supple without jugular venous distention. There was no erythema or swelling of the right side of the neck. As previously mentioned, there was presence of a small hematoma. RESPIRATIONS: Breath sounds clear to auscultation bilaterally. Respirations are even and unlabored. Equal bilateral excursion. CARDIOVASCULAR: Regular rate and rhythm. S1 and S2. ABDOMEN: Soft, nontender. Bowel sounds normoactive. Hepatojugular reflux negative. EXTREMITIES: No lower extremity edema noted. DIAGNOSTIC STUDIES: EKG today demonstrated normal sinus rhythm with first degree AV block. DISCHARGE MEDICATIONS: 1. Norvasc 10 mg daily. 2. Eliquis 5 mg b.i.d. 3. Calcium carbonate 600 mg daily. 4. Coreg 3.125 mg b.i.d. 5. Vitamin D3 daily. 6. Lasix 40 mg p.o. daily for 2 days and 20 mg daily thereafter. 7. Potassium chloride 20 mEq p.o. daily for 2 days 10 mEq p.o. daily thereafter. 8. Pravastatin 10 mg daily. 9. Entresto 24/26 mg p.o. b.i.d. DIET: Heart healthy. SPECIAL INSTRUCTIONS: The patient was encouraged to avoid strenuous activity and lifting more than 10 pounds for 7 days. He is to notify our office regarding fever, chills, shortness of breath, chest discomfort, difficulty swallowing or worsening hematoma. He was encouraged to utilize ice to the right side of the neck for 15 minutes 3 times a day for 2 days. DISPOSITION: Home. PROGNOSIS: Good. FOLLOWUP TEST AND APPOINTMENTS: Dr. Jose Ahuja in 6 weeks. Job ID: [id number]
--- NOTE | 2019-06-12 17:55 | EKG ---
Test Reason : POST ABLATION Blood Pressure : / mmHG Vent. Rate : 059 BPM Atrial Rate : 059 BPM P-R Int : 240 ms QRS Dur : 106 ms QT Int : 458 ms P-R-T Axes : 079 071 057 degrees QTc Int : 453 ms Sinus bradycardia with 1st degree A-V block Low voltage QRS Borderline ECG When compared with ECG of 06-JUN-2019 12:04, Previous ECG has undetermined rhythm, needs review Incomplete right bundle branch block is no longer Present Confirmed by DR. Hakeem MALAGON ([id number]) on 06/12/2019 5:54:36 PM Referred By: MARU Confirmed By:DR. Hakeem MALAGON
--- NOTE | 2019-06-13 08:08 | EKG ---
Test Reason : Blood Pressure : / mmHG Vent. Rate : 076 BPM Atrial Rate : 076 BPM P-R Int : 238 ms QRS Dur : 110 ms QT Int : 400 ms P-R-T Axes : 082 102 047 degrees QTc Int : 450 ms Sinus rhythm with 1st degree A-V block When compared with ECG of 10-JUN-2019 10:37, (Unconfirmed) No significant change was found Confirmed by DR. Hakeem MALAGON ([id number]) on 06/13/2019 8:08:17 AM Referred By: MARU Confirmed By:DR. Hakeem MALAGON
== END 2019-06-11 12:40 | disposition home or self-care (01) ==
LOC: CCL 06:00 → 2SW 11:15
PROVIDERS: ADMIT Specialist; ATTEND Specialist
PROC: 02583ZZ Destruction of Conduction Mechanism, Percutaneous Approach (ICD-10-PCS; principal; 2019-06-11)
PROC: 02K83ZZ Map Conduction Mechanism, Percutaneous Approach (ICD-10-PCS; 2019-06-11)
PROC: 4A023FZ Measurement of Cardiac Rhythm, Percutaneous Approach (ICD-10-PCS; 2019-06-11)
PROC: 4A0234Z Measurement of Cardiac Electrical Activity, Percutaneous Approach (ICD-10-PCS; 2019-06-11)
DX: I48.4 Atypical atrial flutter (principal); I48.1 Persistent atrial fibrillation; I11.0 Hypertensive heart disease with heart failure; I50.22 Chronic systolic (congestive) heart failure; G47.33 Obstructive sleep apnea (adult) (pediatric); E66.9 Obesity, unspecified; I44.0 Atrioventricular block, first degree; Z68.38 Body mass index [BMI] 38.0-38.9, adult; Z79.01 Long term (current) use of anticoagulants; Z79.899 Other long term (current) drug therapy
CPT/HCPCS: 76942; 85347; 93005; 93010; 93613; 93622; 93623; 93656; 93662; C1731; C1759; C1769; G0378; J1644; J2001; J2720; J3010

== ENCOUNTER 2019-07-16 06:58 | Day surgery (SDC) | payer BC ==
[2019-07-14 16:16] VITALS: BMI 38.0
[2019-07-16] MEDS ORDERED: PROPOFOL 20 ML ONE (09:10)
[2019-07-16] MEDS ORDERED: PROPOFOL 200 MG/20 ML VIAL ONE (16:16)
--- NOTE | 2019-07-16 16:56 | OP ---
DATE OF PROCEDURE: 07/16/2019 PROCEDURE PERFORMED: Cardioversion. REASON FOR PROCEDURE: Mr. Aguirre is a 59-year-old male with prior history of CHF and cardiomyopathy with improvement of the LVEF post ablation. He had recurrent atrial arrhythmias and underwent redo ablation on 06/11/2019 [facility]. He had recurrence of atrial flutter and was loaded with propafenone. He is here for a cardioversion. The patient has been anticoagulated adequately with Eliquis. DESCRIPTION OF PROCEDURE: The patient received propofol by anesthesia specialist. After adequate level of sedation achieved, a synchronized 200-joule shock promptly converted the patient back to sinus rhythm. Initial pause was noted, but then normal rhythm at 50s to 60s were ensued. PLAN: Continue current management. Monitor for bradyarrhythmias. Consider LifeVest if LVEF indeed reduced. We will follow him in the office shortly. Job ID: [id number]
== END 2019-07-16 11:40 | disposition home or self-care (01) ==
LOC: CCL 06:58
PROVIDERS: ATTEND Internal Medicine Cardiovascular Disease
PROC: 5A2204Z Restoration of Cardiac Rhythm, Single (ICD-10-PCS; principal; 2019-07-16)
DX: I48.4 Atypical atrial flutter (principal); I48.1 Persistent atrial fibrillation; I11.0 Hypertensive heart disease with heart failure; I50.9 Heart failure, unspecified; I42.0 Dilated cardiomyopathy; G47.33 Obstructive sleep apnea (adult) (pediatric); E66.9 Obesity, unspecified; Z68.38 Body mass index [BMI] 38.0-38.9, adult; Z79.899 Other long term (current) drug therapy; Z79.01 Long term (current) use of anticoagulants; Z98.890 Other specified postprocedural states
CPT/HCPCS: 93005; 93010; J2704

== ENCOUNTER 2019-08-25 13:58 | Inpatient (IN) | payer BC ==
[2019-08-25 14:54] VITALS: BMI 39.9
[2019-08-25] MEDS ORDERED: Dofetilide 0.25 MG CAP PO SCH (17:00)
[2019-08-25] MEDS: Dofetilide 0.125 MG CAP PO SCH (18:11)
[2019-08-25] MEDS: Carvedilol 3.125 MG TAB PO SCH (20:55)
[2019-08-25] MEDS: Rosuvastatin 10 MG TAB PO SCH (20:55)
[2019-08-25] MEDS: Apixaban 5 MG TAB PO SCH (20:55)
[2019-08-25] MEDS: Sacubitril 49 MG/Valsartan 51 MG TABLET PO SCH (20:55)
[2019-08-26] MEDS: Dofetilide 0.125 MG CAP PO SCH ×2 (04:53→17:21)
[2019-08-26 05:20] LABS: Hemoglobin 15.2 g/dL (14.0-18.0); Platelet Count 145 thou/uL (130-400)
[2019-08-26 05:28] LABS: Anion Gap 12 mmol/L (10-20); BUN (Urea Nitrogen) 11 mg/dL (8.4-25.7); Calc. Creatinine Clearance 196 mL/min (70-130); Calcium 8.7 mg/dL (7.8-10.44); Carbon Dioxide 22 mmol/L (23-31); Chloride 107 mmol/L (98-107); Estimated GFR-MDRD Greater than 90; Glucose 117 mg/dL (80-115); Potassium 4.2 mmol/L (3.5-5.1); Sodium 137 mmol/L (136-145)
[2019-08-26] MEDS ORDERED: Apixaban 5 MG TAB PO SCH (09:00)
[2019-08-26] MEDS: Amlodipine 5 MG TAB PO SCH (09:29)
[2019-08-26] MEDS: Carvedilol 3.125 MG TAB PO SCH ×2 (09:30→21:20)
[2019-08-26] MEDS: Apixaban 5 MG TAB PO SCH ×2 (09:30→21:19)
[2019-08-26] MEDS: Sacubitril 49 MG/Valsartan 51 MG TABLET PO SCH ×2 (09:30→21:19)
[2019-08-26 10:50] LABS: Calc. Creatinine Clearance 222 mL/min (70-130); Estimated GFR-MDRD Greater than 90
--- NOTE | 2019-08-26 11:14 | PDOC.CPN ---
- Subjective Date: 08/26/19 Time: 08:00 - Review of Systems General: denies: fever/chills, weight/appetite/sleep changes, night sweats, fatigue Respiratory: denies: cough, congestion, shortness of breath, exercise intolerance Cardiovascular: denies: chest pain, palpitation, edema, paroxysmal nocturnal dyspnea, orthopnea Gastrointestinal: denies: nausea, vomiting, diarrhea, constipation, abd pain, GI bleeding Musculoskeletal: denies: pain, tenderness, stiffness, swelling, arthritis/ arthralgias Neurological: denies: numbness, syncope, seizure, weakness - Objective Allergies/Adverse Reactions: Allergies Allergy/AdvReac Type Severity Reaction Status Date / Time No Known Allergies Allergy Verified 08/25/19 14:43 Visit Medications: Current Medications Amlodipine Besylate (Norvasc) 5 mg PO DAILY [facility] Last Admin: 08/26/19 09:29 Dose: 5 mg Apixaban (Eliquis) 5 mg PO BID [facility] Last Admin: 08/26/19 09:30 Dose: 5 mg Carvedilol (Coreg) 3.125 mg PO BID [facility] Last Admin: 08/26/19 09:30 Dose: 3.125 mg Dofetilide (Tikosyn) 0.5 mg PO 0500,1700 [facility] Last Admin: 08/26/19 04:53 Dose: 0.5 mg Rosuvastatin Calcium (Crestor) 10 mg PO HS [facility] Last Admin: 08/25/19 20:55 Dose: 10 mg Sacubitril/Valsartan (Entresto 49 Mg-51 Mg Tablet) 1 tab PO BID [facility] Last Admin: 08/26/19 09:30 Dose: 1 tab Vital Signs & Weight: Vital Signs Temp Pulse Resp BP BP Pulse Ox 08/26/19 07:26 96.2 F L 52 L 20 165/74 H 97 08/26/19 03:35 97.4 F L 57 L 18 135/76 98 08/25/19 23:35 97.4 F L 57 L 16 128/72 97 Weight 294 lb 12.8 oz - Physical Exam General: alert & oriented x3, appears well, no apparent distress HEENT: mucus membranes moist, normocephaly Neck: supple neck, midline trachea, no JVD/HJR, no masses, no bruit, no lymphadenopathy, no thromegaly Cardiac: irregularly regular (irregularly irregular) Lungs: clear to auscultation, normal breath sounds, normal exam, no wheeze, rales, rhonchi Neuro: grossly intact, no lateralizing findings Abdomen: unremarkable, active bowel sounds - Labs Result Diagrams: 08/26/19 05:03 08/26/19 10:23 - EKG Interpretation Status: report reviewed by me EKG: other (QT/QTc stable on tikosyn) - Telemetry Supraventricular conduction: atrial flutter - Assessment/Plan Assessment/Plan: 1. Atrial arrhythmias. - in atypical atrial flutter ~60bpm. - QTc stable at ~430msec ( unchanged since admit) - continue tikosyn 500mcg BID - continue eliquis 2. Non sustained ventricular tachycardia -10 beast on monitor -known cardiomyopathy, curerntly well compensated and not an issue with this admission. has life vest in place. 3. Hypertension - continue home meds and monitor.
[2019-08-26] MEDS ORDERED: FLU VACC QS2019-20(6MOS UP)/PF 60 MCG/0.5 ML SYRINGE IM ONE (15:00)
[2019-08-26] MEDS: Rosuvastatin 10 MG TAB PO SCH (21:20)
[2019-08-27] MEDS: Dofetilide 0.125 MG CAP PO SCH ×4 (04:59→20:48)
[2019-08-27] MEDS: Amlodipine 5 MG TAB PO SCH (08:40)
[2019-08-27] MEDS: Carvedilol 3.125 MG TAB PO SCH ×2 (08:40→20:48)
[2019-08-27] MEDS: Sacubitril 49 MG/Valsartan 51 MG TABLET PO SCH ×2 (08:40→20:48)
[2019-08-27] MEDS: Apixaban 5 MG TAB PO SCH ×2 (08:40→20:48)
--- NOTE | 2019-08-27 14:01 | PDOC.CPN ---
- Subjective Date: 08/27/19 Time: 11:00 Interval history: Feels well today. no cardiac complaints - Review of Systems General: denies: fever/chills, weight/appetite/sleep changes, night sweats, fatigue Respiratory: denies: cough, congestion, shortness of breath, exercise intolerance Cardiovascular: denies: chest pain, palpitation, edema, paroxysmal nocturnal dyspnea, orthopnea Gastrointestinal: denies: nausea, vomiting, diarrhea, constipation, abd pain, GI bleeding Musculoskeletal: denies: pain, tenderness, stiffness, swelling, arthritis/ arthralgias Neurological: denies: numbness, syncope, seizure, weakness - Objective Allergies/Adverse Reactions: Allergies Allergy/AdvReac Type Severity Reaction Status Date / Time No Known Allergies Allergy Verified 08/25/19 14:43 Visit Medications: Current Medications Amlodipine Besylate (Norvasc) 5 mg PO DAILY [facility] Last Admin: 08/27/19 08:40 Dose: 5 mg Apixaban (Eliquis) 5 mg PO BID [facility] Last Admin: 08/27/19 08:40 Dose: 5 mg Carvedilol (Coreg) 3.125 mg PO BID [facility] Last Admin: 08/27/19 08:40 Dose: 3.125 mg Dofetilide (Tikosyn) 0.5 mg PO 0500,1700 [facility] Last Admin: 08/27/19 10:45 Dose: 0.5 mg Rosuvastatin Calcium (Crestor) 10 mg PO HS [facility] Last Admin: 08/26/19 21:20 Dose: 10 mg Sacubitril/Valsartan (Entresto 49 Mg-51 Mg Tablet) 1 tab PO BID [facility] Last Admin: 08/27/19 08:40 Dose: 1 tab Vital Signs & Weight: Vital Signs Temp Pulse Resp BP BP Pulse Ox 08/27/19 08:40 70 08/27/19 08:00 97.5 F L 74 17 128/83 99 08/27/19 04:00 96.7 F L 70 18 142/67 H 98 Weight 289 lb 8 oz - Physical Exam General: alert & oriented x3 HEENT: mucus membranes moist, normocephaly Neck: supple neck, midline trachea Cardiac: regular rate and rhythm Lungs: clear to auscultation Neuro: grossly intact Abdomen: unremarkable - Labs Result Diagrams: 08/26/19 05:03 08/26/19 10:23 - Telemetry Sinus rhythms and dysrhythmias: sinus rhythm - Assessment/Plan Assessment/Plan: 1. Atrial arrhythmias. - atypical atrial flutter ~60bpm converted to SR 08/27 over HS - QTc ~430msec on admit, no 463msec - continue tikosyn 500mcg BID - continue eliquis 2. Non sustained ventricular tachycardia -10 beats on monitor -known cardiomyopathy, curerntly well compensated and not an issue with this admission. has life vest in place. 3. Hypertension - continue home meds and monitor. Anticipate DC after AM dose/EKG
[2019-08-27] MEDS: Rosuvastatin 10 MG TAB PO SCH (20:48)
[2019-08-28 08:06] VITALS: BP 134/76; TEMP 97.9
[2019-08-28] MEDS: Sacubitril 49 MG/Valsartan 51 MG TABLET PO SCH (08:06)
[2019-08-28] MEDS: Carvedilol 3.125 MG TAB PO SCH (08:06)
[2019-08-28] MEDS: Amlodipine 5 MG TAB PO SCH (08:06)
[2019-08-28] MEDS: Apixaban 5 MG TAB PO SCH (08:06)
[2019-08-28] MEDS: Dofetilide 0.125 MG CAP PO SCH (08:07)
--- NOTE | 2019-08-28 23:07 | EKG ---
Test Reason : TIMED FOR 0800 Blood Pressure : / mmHG Vent. Rate : 059 BPM Atrial Rate : 059 BPM P-R Int : 126 ms QRS Dur : 096 ms QT Int : 426 ms P-R-T Axes : 000 112 019 degrees QTc Int : 421 ms Atrial tachycardia with occasional Premature ventricular complexes Indeterminate axis Inferior infarct , age undetermined Abnormal ECG When compared with ECG of 16-JUL-2019 11:22, (Unconfirmed) Premature ventricular complexes are now Present [place] interval has decreased Right bundle branch block is no longer Present Confirmed by Radha KENDALL ([id number]) on 08/28/2019 11:06:58 PM Referred By: [facility] Confirmed By:Radha KENDALL
--- NOTE | 2019-08-28 23:16 | EKG ---
Test Reason : Blood Pressure : / mmHG Vent. Rate : 066 BPM Atrial Rate : 312 BPM P-R Int : 000 ms QRS Dur : 102 ms QT Int : 432 ms P-R-T Axes : 000 -74 -01 degrees QTc Int : 452 ms Atrial flutter with variable A-V block with premature ventricular or aberrantly conducted complexes . possible atrial tachycardia. Left axis deviation Low voltage QRS Inferior infarct (cited on or before 25-AUG-2019) Abnormal ECG When compared with ECG of 26-AUG-2019 08:07, (Unconfirmed) Atrial flutter has replaced Sinus rhythm Confirmed by Radha KENDALL ([id number]) on 08/28/2019 11:16:30 PM Referred By: Confirmed By:Radha KENDALL
--- NOTE | 2019-08-28 23:22 | EKG ---
Test Reason : PRE TIKOSYN Blood Pressure : / mmHG Vent. Rate : 071 BPM Atrial Rate : 071 BPM P-R Int : 252 ms QRS Dur : 116 ms QT Int : 406 ms P-R-T Axes : 098 -21 016 degrees QTc Int : 441 ms Sinus rhythm with 1st degree A-V block with Premature atrial complexes Indeterminate axis Inferior-posterior infarct (cited on or before 25-AUG-2019) Abnormal ECG When compared with ECG of 26-AUG-2019 08:07, (Unconfirmed) Premature ventricular complexes are no longer Present Premature atrial complexes are now Present [place] interval has increased Questionable change in QRS duration Confirmed by Radha KENDALL ([id number]) on 08/28/2019 11:22:43 PM Referred By: [facility] Confirmed By:Radha KENDALL
--- NOTE | 2019-08-28 23:25 | EKG ---
Test Reason : POST TIKOSYN Blood Pressure : / mmHG Vent. Rate : 076 BPM Atrial Rate : 076 BPM P-R Int : 270 ms QRS Dur : 116 ms QT Int : 412 ms P-R-T Axes : 082 -38 017 degrees QTc Int : 463 ms Sinus rhythm with 1st degree A-V block Left axis deviation Inferior-posterior infarct (cited on or before 25-AUG-2019) Abnormal ECG When compared with ECG of 27-AUG-2019 10:19, (Unconfirmed) Premature atrial complexes are no longer Present Confirmed by Radha KENDALL ([id number]) on 08/28/2019 11:24:46 PM Referred By: [facility] Confirmed By:Radha KENDALL
--- NOTE | 2019-08-28 23:45 | EKG ---
Test Reason : SOTALOL Blood Pressure : / mmHG Vent. Rate : 058 BPM Atrial Rate : 058 BPM P-R Int : 238 ms QRS Dur : 114 ms QT Int : 458 ms P-R-T Axes : 072 100 008 degrees QTc Int : 449 ms Sinus bradycardia with 1st degree A-V block Incomplete right bundle branch block Possible Right ventricular hypertrophy Possible Inferior infarct (cited on or before 25-AUG-2019) Abnormal ECG When compared with ECG of 27-AUG-2019 12:43, (Unconfirmed) Incomplete right bundle branch block is now Present Confirmed by Radha KENDALL ([id number]) on 08/28/2019 11:45:36 PM Referred By: Confirmed By:Radha KENDALL
--- NOTE | 2019-08-28 23:52 | EKG ---
Test Reason : TIMED--POST MED Blood Pressure : / mmHG Vent. Rate : 063 BPM Atrial Rate : 063 BPM P-R Int : 244 ms QRS Dur : 112 ms QT Int : 444 ms P-R-T Axes : 059 079 -14 degrees QTc Int : 454 ms Sinus rhythm with 1st degree A-V block Indeterminate axis Incomplete right bundle branch block Inferior infarct (cited on or before 25-AUG-2019) Abnormal ECG When compared with ECG of 27-AUG-2019 12:43, (Unconfirmed) No significant change was found Confirmed by Radha KENDALL ([id number]) on 08/28/2019 11:52:32 PM Referred By: [facility] Confirmed By:Radha KENDALL
== END 2019-08-28 11:35 | disposition home or self-care (01) | DRG 309 ==
LOC: 2NO 13:58
PROVIDERS: ADMIT Internal Medicine Cardiovascular Disease; ATTEND Internal Medicine Cardiovascular Disease
DX: I48.4 Atypical atrial flutter (principal); I50.22 Chronic systolic (congestive) heart failure; G47.33 Obstructive sleep apnea (adult) (pediatric); E66.9 Obesity, unspecified; I11.0 Hypertensive heart disease with heart failure; I42.0 Dilated cardiomyopathy; I47.2 Ventricular tachycardia; Z79.01 Long term (current) use of anticoagulants; Z68.39 Body mass index [BMI] 39.0-39.9, adult
CPT/HCPCS: 36415; 80048; 85014; 85018; 85049; 93005; 93010; J8499

== ENCOUNTER 2020-08-16 07:49 | Outpatient (CLI) | payer BC, OTHER ==
[2020-08-16 14:35] LABS: #Eosinphils 0.2 thou/uL (0.0-0.7); #Lymphocytes 1.4 thou/uL (1.20-3.40); #Monocytes 0.7 thou/uL (0.11-0.59); #Neutrophils 6.2 thou/uL (1.40-6.50); %Basophils 0.5 % (0.0-1.0); %Eosinophils 1.8 % (0.0-10.0); %Lymphocytes 16.3 % (21.0-51.0); %Monocytes 8.5 % (0.0-10.0); %Neutrophils 72.9 % (42.0-75.0); Hemoglobin 15.3 g/dL (14.0-18.0); Mean Corpuscular HGB CONC 32.3 g/dL (32.0-36.0); Mean Corpuscular Hemoglobin 30.2 pg (27.0-31.0); Mean Corpuscular Volume 93.7 fL (78.0-98.0); Mean Platelet Volume 7.6 fL (7.4-10.4); Platelet Count 201 thou/uL (130-400); RBC Distribution Width 12.4 % (11.5-14.5); Red Blood Cell (RBC) Count 5.05 mill/uL (4.70-6.10); White Blood Cell (WBC) Count 8.6 thou/uL (4.8-10.8)
[2020-08-16 14:58] LABS: Anion Gap 17 mmol/L (10-20); BUN (Urea Nitrogen) 14 mg/dL (8.4-25.7); Calc. Creatinine Clearance 0 mL/min (70-130); Calcium 8.7 mg/dL (7.8-10.44); Carbon Dioxide 23 mmol/L (23-31); Chloride 105 mmol/L (98-107); Estimated GFR-MDRD Greater than 90; Glucose 108 mg/dL (80-115); Potassium 4.5 mmol/L (3.5-5.1); Sodium 140 mmol/L (136-145)
[2020-08-17 14:56] LABS: SARS-CoV-2 MS2 Positive; SARS-CoV-2 N Gene Negative; SARS-CoV-2 S Gene Negative; SARS-CoV-2 by NAA Not Detected (NotDetected); SARS-CoV-2 orf1ab Negative
--- NOTE | 2020-08-17 16:16 | EKG ---
Test Reason : Blood Pressure : / mmHG Vent. Rate : 071 BPM Atrial Rate : 234 BPM P-R Int : 000 ms QRS Dur : 096 ms QT Int : 424 ms P-R-T Axes : 000 076 041 degrees QTc Int : 460 ms Atrial tachycardia with variable A-V block Low voltage QRS Abnormal ECG Confirmed by FIDEL MCLAUGHLIN ([id number]) on 08/17/2020 4:16:24 PM Referred By: [facility] Confirmed By:FIDEL MCLAUGHLIN
== END 2020-08-16 07:50 | disposition home or self-care (01) ==
LOC: LABBT 07:49
PROVIDERS: ATTEND Internal Medicine
DX: Z01.818 Encounter for other preprocedural examination (principal); Z20.828 Contact with and (suspected) exposure to other viral communicable diseases; I48.3 Typical atrial flutter
CPT/HCPCS: 80048; 85025; 87635; 93005; 93010; U0003

== ENCOUNTER 2020-08-19 05:52 | Day surgery (SDC) | payer BC ==
[2020-08-17 13:35] VITALS: BMI 41.3
[2020-08-19] MEDS ORDERED: PROPOFOL 20 ML ONE (06:46)
--- NOTE | 2020-08-19 13:22 | EKG ---
Test Reason : POST CARDIOVERSION Blood Pressure : / mmHG Vent. Rate : 063 BPM Atrial Rate : 063 BPM P-R Int : 256 ms QRS Dur : 098 ms QT Int : 440 ms P-R-T Axes : 091 035 051 degrees QTc Int : 450 ms Sinus rhythm with sinus arrhythmia with 1st degree A-V block Possible Inferior infarct , age undetermined Abnormal ECG Confirmed by FIDEL MCLAUGHLIN ([id number]) on 08/19/2020 1:22:00 PM Referred By: [facility] Confirmed By:FIDEL MCLAUGHLIN
--- NOTE | 2020-08-20 22:07 | CCLSPC ---
INDICATION FOR PROCEDURE: This is a 60-year-old patient who has had a history of atrial fibrillation/flutter in the past. He has undergone ablations. He again presented for followup with electrophysiology, was found to be back again in atrial flutter. He was advised to undergo electrical cardioversion of the atrial flutter back to normal sinus rhythm. He was taken to the recovery where he underwent short-acting propofol. Using 2 attempts, he was converted back to sinus rhythm with a heart rate in the 70s, initial attempt was at 200 joules. He did not convert, but did have bradycardia with continued atrial flutter. Second attempt was at 300 joules, and he successfully converted back to a sinus rhythm. There were no difficulties or complications encountered, and the patient tolerated the procedure well. IMPRESSION: Atrial flutter, successfully converted back to a normal sinus rhythm. Job ID: [id number]
== END 2020-08-19 08:32 | disposition home or self-care (01) ==
LOC: SDC 05:52
PROVIDERS: ATTEND Internal Medicine Cardiovascular Disease
PROC: 5A2204Z Restoration of Cardiac Rhythm, Single (ICD-10-PCS; principal; 2020-08-19)
DX: I48.3 Typical atrial flutter (principal); I48.0 Paroxysmal atrial fibrillation; I11.0 Hypertensive heart disease with heart failure; I50.22 Chronic systolic (congestive) heart failure; I25.10 Atherosclerotic heart disease of native coronary artery without angina pectoris; I42.0 Dilated cardiomyopathy; E78.2 Mixed hyperlipidemia; E65 Localized adiposity; E66.9 Obesity, unspecified; Z68.41 Body mass index [BMI] 40.0-44.9, adult; Z87.891 Personal history of nicotine dependence; Z79.01 Long term (current) use of anticoagulants; Z79.899 Other long term (current) drug therapy
CPT/HCPCS: 92960; 93005; 93010; J2704